=== PATIENT | male | born 1965 | race Caucasian/White ===

== ENCOUNTER 2016-12-07 04:14 | Inpatient (IN) | payer OTHER ==
[~2016-12-07] VITALS: Ht 177.8 cm; Wt 49.4 kg
--- NOTE | ~2016-12-07 | EKG ---
[address] [address] ELECTROCARDIOGRAM REPORT Name: JUICE BURGOS Room #: 419-P ADM IN M.R.#: [id number] Admission: 12/08/16 Attend Phys: Neetu Amaya MD Discharge: Date of : 67 Report #: [id number] THIS REPORT FOR: //name// [facility] Test Date: 2016-12-10 Test Time: 13:23:50 Pat Name: JIUCE BURGOS Department: Room: 419 P Gender: M Fashion Coordinator: rachid : 1965 Requested By: Conrado Ramirez Order Number: [id number] MD: Liam Mccoy Measurements Intervals [place] Rate: 82 P: 37 MN: 170 QRS: -49 QRSD: 95 T: 36 QT: 373 QTc: 436 Interpretive Statements Sinus rhythm Baseline wander in multiple leads leftward axis no previous ECGs available for comparison Electronically Signed On 12-11-2016 8:00:00 RN NEUROLOGY by Liam Mccoy [email or web address] <ELECTRONICALLY SIGNED> By: Liam Mccoy MD, [facility] 12/11/16 0800 1323 1323 Liam Mccoy MD, FAC /EPI
--- NOTE | ~2016-12-07 | H ---
[facility] [place] [address] HISTORY AND PHYSICAL Name: JUICE BURGOS Room #: 419-P [facility] Yan Benson#: [id number] Admission: 12/07/16 Attend Phys: Neetu Amaya MD Discharge: Date of : 67 Report #: [id number] THIS REPORT FOR: //name// CC: Conrado Rasmussen DATE OF SERVICE: 12/07/2016 TYPE OF DICTATION: Admission H and P after [id number]-pt-wnnz encounter. CHIEF COMPLAINT: Status epilepticus. HISTORY OF PRESENT ILLNESS: The patient is 51 years old male with past medical history of seizures since , who presented to the ED with seizure activity, continuous, starting this morning. Seizures consistent with staring, ____ twitching, and restlessness. The patient is remaining agitated after the seizure. The patient was vomiting at home and he could not take his medicines I think and this is causing his seizures. He was started on IV antiseizures and he is now better. The patient was seen by neurology this morning and appreciated input. REVIEW OF SYSTEMS: Unobtainable. PAST MEDICAL HISTORY: 1. Seizure disorder. 2. Colonization. 3. Bipolar disorder. 4. Moderate mental retardation. 5. Osteoarthritis. 6. ____. 7. Dysphagia. 8. PE. 9. IV filter placement. 10. Hypothyroidism. MEDICATIONS: See admission reconciliation sheet. ALLERGIES: No known drug allergies. FAMILY HISTORY: Noncontributory. SOCIAL HISTORY: Never smoked, drink or took any recreational drugs. PHYSICAL EXAMINATION: GENERAL: The patient is confused, mentally retarded, decreased attention. EYES: Normal pupils. No icterus. [facility] [address] [place] [address] HISTORY AND PHYSICAL Name: JUICE BURGOS [id number] Admission: 12/07/16 Attend Phys: Neetu Amaya MD Discharge: Date of : 67 Report #: [id number] HEENT: Moist mucous membranes. NECK: Supple. No JVD, no bruit, no thyroid. CHEST: Good air entry on both sides. Normal respiratory effort. CARDIOVASCULAR: Regular rate and rhythm. No murmur, rub or gallop. ABDOMEN: Lax, nontender, positive bowel sounds, no organomegaly appreciated. EXTREMITIES: No cyanosis, clubbing, or edema. NEUROLOGIC: Cranial nerves 2-12 are intact. No focal neurological signs. PSYCHIATRIC: Restless. SKIN: No rash or ulcer. LABORATORY DATA: White count 7.9, hemoglobin 14.6, hematocrit 42.5, and platelets 282. Normal differential. BMP is normal. LFTs within normal except alkaline phosphatase is 160. EKG, no acute changes. ASSESSMENT AND PLAN: 1. Status epilepticus. The patient is going to be on IV Depakote until we can resume his home medicines. Neurology is also seeing the patient, they are going to follow with him. 2. Nausea and vomiting, to give him antinausea medicines as needed. 3. The patient is full code. 4. The patient has gastrointestinal and deep venous thrombosis prophylaxis. <ELECTRONICALLY SIGNED> By: Neetu Amaya MD 12/08/16 0952 1105 1137 Neetu Amaya MD /nt
--- NOTE | ~2016-12-07 | EKG ---
[address] [place] [place] [address] ELECTROCARDIOGRAM REPORT Name: REJI BURGOSY Julissa Room #: 426-P [facility]..#: [id number] Admission: 12/07/16 Attend Phys: Vannesa Rasmussen MD Discharge: Date of : 67 Report #: [id number] THIS REPORT FOR: //name// [facility] ED Test Date: 2016-12-07 Test Time: 05:23:46 Pat Name: JUICE BURGOS Department: Room: [facility] Gender: M Marketing Secretary: pete : 1965 Requested By: Bulmaro Lewis Order Number: [id number] MD: Chan Thomas Measurements Intervals [place] Rate: 104 P: 30 PA: 179 QRS: -81 QRSD: 95 T: 52 QT: 335 QTc: 441 Interpretive Statements Sinus tachycardia Left anterior fascicular block Nonspecific ST segment abnormalities Compared to ECG 09/01/2016 19:51:28 No significant change Electronically Signed On 12-07-2016 11:01:17 CONTINUUM OF CARE MANAGER by Chan Thomas [email or web address] <ELECTRONICALLY SIGNED> By: Chan Thomas MD 12/07/16 1101 D: 01522 2 Chan Thomas MD /ABDIFATAH
--- NOTE | ~2016-12-07 | HC ---
[facility] [place] [address] CONSULTATION Name: JUICE BURGOS Room #: 419-P [facility] IN ..#: [id number] Admission: 12/08/16 Attend Phys: Neetu Amaya MD Discharge: 12/11/16 Date of : 67 Report #: [id number] THIS REPORT FOR: //name// CC: Neetu Becker DATE OF SERVICE: 12/09/2016 HISTORY OF PRESENT ILLNESS: We were asked to see this gentleman with respect to his chronic psychiatric illness. Past diagnoses include bipolar affective disorder, schizoaffective disorder and developmental delay. Presented here after having a seizure. He has been uncooperative and combative initially, but now is sitting in the chair quite peacefully. PAST PSYCHIATRIC HISTORY: He has a longstanding history of agitation, mood disorder and developmental delay. PAST MEDICAL HISTORY: Seizure disorder, he is on multiple anticonvulsants. He has had a vagal nerve stimulator, hypothyroid, osteoarthritis. SOCIAL HISTORY: He lives in a senior care, no active substance abuse issues. His sister is his guardian. FAMILY HISTORY: Unable to obtain from the patient. CURRENT MEDICATIONS: Include Lamictal 100 daily, phenytoin 100 three times daily, Vimpat 200 twice daily. MENTAL STATUS EXAM: male, childlike demeanor, casually dressed, blunting of affect, distractable, no suicidal ideation, no homicidal ideation, no hallucinations, no delusions. Insight, judgment limited. DIAGNOSES: AXIS I: Schizoaffective disorder. AXIS II: Developmental delay. AXIS III: See past medical history. AXIS IV: Moderately severe. AXIS V: 25. RECOMMENDATIONS: 1. All decisions through the patient's sister who is his legal guardian. 2. I did talk to the patient's sister who explained that the exacerbations of behavior are generally due to seizures and the seizures have typically been related to infections or other metabolic infectious injuries or insults. His sister did not think that any of the psychotropic medications had ever affected seizure threshold or been a contraindication based on his seizure disorder. [facility] [address] [place] [address] CONSULTATION Name: JUICE BURGOS Room #: 419-P [facility] IN M.R.#: [id number] Admission: 12/08/16 Attend Phys: Neetu Amaya MD Discharge: 12/11/16 Date of : 67 Report #: [id number] Sister is going to try to get us more information upon and with respect to recent medication changes from a psychiatric psychotropic standpoint. I did try to call but was unable to reach them. He typically would not meet criteria for an inpatient psychiatric unit even if he was agitated based upon severe enough developmental delay that would preclude functioning in the milieu. <ELECTRONICALLY SIGNED> By: Too Garcia MD 12/16/16 1412 1514 1546 Too Garcia MD /jacqui
[~2016-12-07 04:14] MED LIST: ATIVAN0.5 MG PO; ATIVAN1 M1; ATIVAN1 M1 PO; ATIVAN1 MG PO; AUGMENTIN PO; BACTRIM DS TAB1 EACH PO; CARBAMAZEPINE100 MG PO; CARBAMAZEPINE200 M3 PO; CHLORPROMAZINE100 MG PO; CIPROFLOXACIN500 M1 PO; CLARITIN10 MG PO; DIAZEPAM 5 MG5 M1 PO; DILANTIN100 MG PO; DOCUSATE SODIU100 MG PO; HALOPERIDOL 5 MG5 MG PO; KEFLEX500 MG PO; LAMICTAL XR100 MG PO; LAMICTAL100 MG PO; LAMOTRIGINE100 MG PO; LEVOTHYROXINE0.05 MG PO; LORAZEPAM 22 MG/1 ML PO; LORAZEPAM I2 MG/1 ML; MEDROXYPROGESTERONE IM; MIRALAX17 GM PO; NORCO 5-325 TA1 EACH PO; ONDANSETRON HCL4 M2 PO; PAROXETINE HCL30 MG PO; REQUIP 1 MG TABL1 M1 PO; SEROQUEL 50 MG50 MG PO; SIMVASTATIN40 MG PO; TRAZODONE 150150 M1 PO; TRAZODONE HCL100 MG PO; TRIAMCINOLONE A60 M1; Trazodone PO; VALIUM5 MG PO; VIMPAT100 MG PO; ZOCOR20 MG PO; ZOFRAN ODT4 MG PO
[2016-12-07 04:15] VITALS: BP 126/81
[2016-12-07 05:10] LABS: HEMATOCRIT 42.5 % (42.0-52.0); HEMOGLOBIN 14.6 gm/dL (14.0-18.0); MCH 29.5 pg (26.0-34.0); MCHC 34.3 % (28.0-37.0); MCV 85.9 fL (80.0-100.0); PLATELET COUNT 282 thou/uL (150-400); RBC 4.94 mil/uL (4.50-6.00); RDW 14.2 % (10.5-14.5); WBC 7.9 thou/uL (4.0-11.0)
[2016-12-07 05:18] LABS: MANUAL DIFF YES
[2016-12-07 05:20] LABS: CALCIUM 9.3 mg/dL (8.5-10.1); CREATININE 0.8 mg/dL (0.6-1.3); POTASSIUM 3.8 mmol/L (3.5-5.1)
[2016-12-07 05:37] LABS: TOTAL BILIRUBIN 0.2 mg/dL (<0.1-1.0)
[2016-12-07 06:18] LABS: TOTAL CELL COUNT 100
[2016-12-07 06:32] VITALS: BP 115/87
[2016-12-07 07:30] VITALS: BP 98/66
[2016-12-07 15:51] VITALS: BP 120/76
[2016-12-07 20:00] VITALS: BP 126/87
[2016-12-08 04:00] VITALS: BP 111/81
[2016-12-08 05:45] LABS: HEMATOCRIT 40.6 % (42.0-52.0); HEMOGLOBIN 13.8 gm/dL (14.0-18.0); MCH 29.2 pg (26.0-34.0); PLATELET COUNT 255 thou/uL (150-400); RBC 4.72 mil/uL (4.50-6.00); RDW 14.5 % (10.5-14.5); WBC 6.7 thou/uL (4.0-11.0)
[2016-12-08 05:46] LABS: MANUAL DIFF YES
[2016-12-08 05:50] LABS: CREATININE 0.6 mg/dL (0.6-1.3); POTASSIUM 3.5 mmol/L (3.5-5.1)
[2016-12-08 07:42] VITALS: BP 123/85
[2016-12-08 07:46] LABS: ABSOLUTE NEUTROPHILS 4.8 thou/uL (1.4-8.2); TOTAL CELL COUNT 100
[2016-12-08 07:47] LABS: ANISOCYTOSIS SLIGHT
[2016-12-08 15:34] VITALS: BP 131/86
[2016-12-08 23:04] VITALS: BP 135/67
[2016-12-09 05:28] VITALS: BP 109/57
[2016-12-09 06:30] LABS: HEMATOCRIT 42.2 % (42.0-52.0); HEMOGLOBIN 14.6 gm/dL (14.0-18.0); MCH 29.5 pg (26.0-34.0); MCHC 34.6 % (28.0-37.0); MCV 85.4 fL (80.0-100.0); PLATELET COUNT 235 thou/uL (150-400); RBC 4.94 mil/uL (4.50-6.00); RDW 14.5 % (10.5-14.5); WBC 5.8 thou/uL (4.0-11.0)
[2016-12-09 06:31] LABS: MANUAL DIFF YES
[2016-12-09 07:11] LABS: CALCIUM 8.8 mg/dL (8.5-10.1); CREATININE 0.6 mg/dL (0.6-1.3); POTASSIUM 3.7 mmol/L (3.5-5.1)
[2016-12-09 07:50] VITALS: BP 108/71
[2016-12-09 08:41] LABS: ABSOLUTE NEUTROPHILS 3.5 thou/uL (1.4-8.2); PLATELET ESTIMATE NORMAL; TOTAL CELL COUNT 100
[2016-12-09 15:23] VITALS: BP 95/66
[2016-12-09 20:00] VITALS: BP 142/83
[2016-12-10 04:30] VITALS: BP 110/85
[2016-12-10 07:35] VITALS: BP 118/76
[2016-12-10 13:29] VITALS: BP 107/72
[2016-12-10 13:59] LABS: HEMATOCRIT 42.3 % (42.0-52.0); HEMOGLOBIN 14.5 gm/dL (14.0-18.0); MCH 29.2 pg (26.0-34.0); MCHC 34.2 % (28.0-37.0); MCV 85.5 fL (80.0-100.0); PLATELET COUNT 219 thou/uL (150-400); RBC 4.95 mil/uL (4.50-6.00); RDW 14.3 % (10.5-14.5); WBC 4.2 thou/uL (4.0-11.0)
[2016-12-10 14:01] LABS: MANUAL DIFF YES
[2016-12-10 14:10] LABS: CALCIUM 8.3 mg/dL (8.5-10.1); CREATININE 0.6 mg/dL (0.6-1.3); POTASSIUM 3.3 mmol/L (3.5-5.1)
[2016-12-10 14:12] LABS: DILANTIN 4.1 ug/mL (10.0-20.0)
[2016-12-10 14:17] LABS: TOTAL CELL COUNT 100
[2016-12-10 17:05] VITALS: BP 117/72
[2016-12-10 20:00] VITALS: BP 113/70
[2016-12-11 04:00] VITALS: BP 111/70
[2016-12-11 07:32] VITALS: BP 124/66
[2016-12-11 08:04] VITALS: BP 119/74
[2016-12-11 15:21] VITALS: BP 119/74
[2016-12-11 15:23] VITALS: BP 119/86
[2016-12-11] MEDS ORDERED: PHENYTOIN50 MG PO ×2 (15:49→15:50)
== END 2016-12-11 18:20 | disposition other institution (70) | DRG 871 ==
LOC: ER 04:14 → 4E 05:31 → EROBS 05:31 → 4E 06:30
PROVIDERS: Emergency Medicine; Hospitalist
DX: A41.9 Sepsis, unspecified organism (principal); G93.40 Encephalopathy, unspecified; G40.801 Other epilepsy, not intractable, with status epilepticus; N39.0 Urinary tract infection, site not specified; F25.9 Schizoaffective disorder, unspecified; F31.9 Bipolar disorder, unspecified; E03.9 Hypothyroidism, unspecified; M19.90 Unspecified osteoarthritis, unspecified site; Z79.899 Other long term (current) drug therapy; Z86.711 Personal history of pulmonary embolism
CPT/HCPCS: 10183

== ENCOUNTER → 2017-03-05 | Outpatient (CLI) | payer OTHER ==
[~2017-03-05] MED LIST changes: +PHENYTOIN50 MG PO
--- NOTE | ~2017-03-05 | EKG ---
[address] [place] [address] ELECTROCARDIOGRAM REPORT Name: JUICE BURGOS Room #: [facility]#: [id number] Admission: 03/05/17 Attend Phys: Conrado Becker MD Discharge: Date of : 67 Report #: [id number] THIS REPORT FOR: //name// [facility] Test Date: 2017-03-05 Test Time: 11:29:01 Pat Name: JUICE BURGOS Department: Room: Gender: Pedicurist: rachid : 1965 Requested By: Conrado Becker Order Number: [id number] MD: Liam Mccoy Measurements Intervals [place] Rate: 81 P: 16 [place]: 185 QRS: -83 QRSD: 102 T: 67 QT: 390 QTc: 453 Interpretive Statements Sinus rhythm Left anterior fascicular block Baseline wander in lead(s) I,III,aVR,aVL,aVF,V6 Compared to ECG 12/10/2016 13:23:50 No significant change was found Electronically Signed On 03-06-2017 8:35:59 CDT by Liam Mccoy [email or web address] <ELECTRONICALLY SIGNED> By: Liam Mccoy MD, [facility] 03/06/17 0835 1129 1129 Liam Mccoy MD, [facility] /EPI
[2017-03-05 12:09] LABS: HEMATOCRIT 43.7 % (42.0-52.0); HEMOGLOBIN 14.9 gm/dL (14.0-18.0); MCH 30.2 pg (26.0-34.0); MCHC 34.2 g/dL (28.0-37.0); MCV 88.2 fL (80.0-100.0); RBC 4.95 mil/uL (4.50-6.00); RDW 14.5 % (10.5-14.5); WBC 3.9 thou/uL (4.0-11.0)
[2017-03-05 12:18] LABS: CALCIUM 8.8 mg/dL (8.5-10.1); CREATININE 0.7 mg/dL (0.7-1.3); POTASSIUM 3.9 mmol/L (3.5-5.1)
[2017-03-05 12:23] LABS: ALBUMIN 4.4 g/dL (3.4-5.0); TOTAL BILIRUBIN 0.3 mg/dL (<0.1-1.0)
[2017-03-05 15:43] LABS: URINE BILIRUBIN NEGATIVE (Negative); URINE BLOOD NEGATIVE (Negative); URINE COLOR YELLOW; URINE GLUCOSE-RANDOM* NEGATIVE (Negative); URINE KETONES NEGATIVE (Negative); URINE NITRITE NEGATIVE (Negative); URINE PROTEIN (DIPSTICK) NEGATIVE (Negative); URINE UROBILINOGEN 0.2 E.U./dl (0.2-1.0)
== END ==
LOC: CV 06:46
DX: Z01.818 Encounter for other preprocedural examination (principal); R91.8 Other nonspecific abnormal finding of lung field

== ENCOUNTER 2017-04-12 22:10 | Inpatient (IN) | payer OTHER ==
[~2017-04-12] VITALS: Ht 185.4 cm; Wt 85.3 kg
[2017-04-12 22:11] VITALS: BP 129/62
[2017-04-12 23:08] LABS: ABSOLUTE NEUTROPHILS 2.3 thou/uL (1.4-8.2); BASOPHILS 0.7 % (0.0-2.0); EOSINOPHILS 2.5 % (0.0-3.0); HEMATOCRIT 40.4 % (42.0-52.0); HEMOGLOBIN 13.8 gm/dL (14.0-18.0); LYMPHOCYTES 32.1 % (24.0-44.0); MCH 30.5 pg (26.0-34.0); MCHC 34.2 g/dL (28.0-37.0); MCV 89.2 fL (80.0-100.0); MONOCYTES 9.9 % (1.0-8.0); PLATELET COUNT 209 thou/uL (150-400); POLYS 54.8 % (36.0-66.0); RBC 4.53 mil/uL (4.50-6.00); RDW 13.7 % (10.5-14.5); WBC 4.2 thou/uL (4.0-11.0)
[2017-04-12 23:09] LABS: URINE BILIRUBIN NEGATIVE (Negative); URINE BLOOD NEGATIVE (Negative); URINE COLOR YELLOW; URINE GLUCOSE-RANDOM* NEGATIVE (Negative); URINE KETONES NEGATIVE (Negative); URINE LEUKOCYTES-REFLEX NEGATIVE (Negative); URINE PROTEIN (DIPSTICK) NEGATIVE (Negative); URINE SPECIFIC GRAVITY 1.015 (1.003-1.035); URINE UROBILINOGEN 0.2 E.U./dl (0.2-1.0)
[2017-04-12 23:10] LABS: MANUAL DIFF NO
[2017-04-12 23:16] LABS: CALCIUM 8.5 mg/dL (8.5-10.1); CREATININE 0.7 mg/dL (0.7-1.3); POTASSIUM 3.4 mmol/L (3.5-5.1)
[2017-04-13 00:52] VITALS: BP 128/74; BP 129/62
[2017-04-13 08:05] VITALS: BP 137/62
[2017-04-13 08:22] LABS: CALCIUM 9.1 mg/dL (8.5-10.1); CREATININE 0.6 mg/dL (0.7-1.3); POTASSIUM 4.1 mmol/L (3.5-5.1)
[2017-04-13 12:55] VITALS: BP 120/74
[2017-04-13 15:57] VITALS: BP 137/62
[2017-04-13 16:20] VITALS: BP 133/81
[2017-04-13 19:15] VITALS: BP 134/88
[2017-04-14 03:45] VITALS: BP 130/97
[2017-04-14 06:03] LABS: CALCIUM 9.1 mg/dL (8.5-10.1); CREATININE 0.7 mg/dL (0.7-1.3); POTASSIUM 4.4 mmol/L (3.5-5.1)
== END 2017-04-14 09:28 | disposition home health service (06) | DRG 101 ==
LOC: ER 22:10 → 4W 23:41 → EROBS 23:41 → 4W 04-13 00:55
PROVIDERS: Emergency Medicine; Hospitalist; Nurse Practitioner Acute Care
DX: G40.919 Epilepsy, unspecified, intractable, without status epilepticus (principal); F71 Moderate intellectual disabilities; M19.90 Unspecified osteoarthritis, unspecified site; E87.6 Hypokalemia; F80.82 Social pragmatic communication disorder; F31.9 Bipolar disorder, unspecified; E03.9 Hypothyroidism, unspecified; Z79.899 Other long term (current) drug therapy; Z87.440 Personal history of urinary (tract) infections; Z86.711 Personal history of pulmonary embolism
CPT/HCPCS: 10047

== ENCOUNTER 2017-06-08 19:58 | Emergency (ER) | payer OTHER ==
[~2017-06-08] VITALS: Ht 177.8 cm; Wt 86.2 kg
--- NOTE | ~2017-06-08 | EKG ---
[address] [place] [address] ELECTROCARDIOGRAM REPORT Name: LORETTA,JUICEJustin PECK Room [facility] [id number] Admission: 06/08/17 Attend Phys: Discharge: 06/08/17 Date of : 67 Report #: [id number] THIS REPORT FOR: //name// [facility] ED Test Date: 2017-06-08 Test Time: 20:23:13 Pat Name: JUICE BURGOS Department: Room: Gender: M Cash Controller: LOUISA : 1965 Requested By: Magi Shipman Order Number: [id number] MD: Liam Mccoy Measurements Intervals [place] Rate: 98 P: -2 MO: 169 QRS: 220 QRSD: 92 T: 42 QT: 348 QTc: 445 Interpretive Statements Sinus rhythm Markedly posterior QRS axis ST elevation, consider inferior injury Compared to ECG 03/05/2017 11:29:01 Posterior QRS axis now present ST (T wave) deviation now present Myocardial infarct finding now present Left anterior fascicular block no longer present Electronically Signed On 06-09-2017 7:49:05 CDT by Liam Mccoy [email or web address] <ELECTRONICALLY SIGNED> By: Liam Mccoy MD, [facility] 06/09/1749 22 22 Liam Mccoy MD, [facility] /EPI
[~2017-06-08 19:58] MED LIST changes: +DOXYCYCLINE 10100 MG PO; +HYDROCODONE-APA1 TA1 PO; +ONFI10 MG PO
[2017-06-08] MEDS ORDERED: PAXIL10 MG PO ×2 (20:41→20:42)
[2017-06-08 21:30] LABS: ABSOLUTE NEUTROPHILS 2.3 thou/uL (1.4-8.2); BASOPHILS 0.8 % (0.0-2.0); EOSINOPHILS 1.9 % (0.0-3.0); HEMATOCRIT 42.1 % (42.0-52.0); HEMOGLOBIN 14.2 gm/dL (14.0-18.0); LYMPHOCYTES 40.5 % (24.0-44.0); MCH 29.3 pg (26.0-34.0); MCHC 33.8 g/dL (28.0-37.0); MCV 86.7 fL (80.0-100.0); MONOCYTES 10.9 % (1.0-8.0); PLATELET COUNT 244 thou/uL (150-400); POLYS 45.9 % (36.0-66.0); RBC 4.86 mil/uL (4.50-6.00); RDW 14.7 % (10.5-14.5)
[2017-06-08 21:32] LABS: MANUAL DIFF NO
[2017-06-08 21:44] LABS: CALCIUM 9.2 mg/dL (8.5-10.1); CREATININE 0.8 mg/dL (0.7-1.3)
[2017-06-08 21:49] LABS: TOTAL BILIRUBIN 0.2 mg/dL (<0.1-1.0); TOTAL PROTEIN 7.9 g/dL (6.4-8.2)
[2017-06-08] MEDS ORDERED: KEFLEX500 MG PO (23:11)
[2017-06-08] MEDS ORDERED: REGLAN 10 MG TA10 MG PO (23:11)
[2017-06-08] MEDS ORDERED: PEPCID20 MG PO (23:11)
== END 2017-06-08 23:16 | disposition home or self-care (01) ==
LOC: ER 19:58
PROVIDERS: Physician Assistant
DX: R11.2 Nausea with vomiting, unspecified (principal); E86.0 Dehydration; R10.84 Generalized abdominal pain; F31.9 Bipolar disorder, unspecified; M19.90 Unspecified osteoarthritis, unspecified site; E03.9 Hypothyroidism, unspecified; F71 Moderate intellectual disabilities

== ENCOUNTER 2017-09-17 12:10 | Emergency (ER) | payer OTHER ==
[~2017-09-17] VITALS: Ht 177.8 cm; Wt 86.2 kg
[~2017-09-17 12:10] MED LIST changes: +PAXIL10 MG PO; +PEPCID20 MG PO; +REGLAN 10 MG TA10 MG PO
== END 2017-09-17 13:50 | disposition home or self-care (01) ==
LOC: ER 12:10
DX: S61.412A Laceration without foreign body of left hand, initial encounter (principal); F31.9 Bipolar disorder, unspecified; M19.90 Unspecified osteoarthritis, unspecified site; E03.9 Hypothyroidism, unspecified; Z87.440 Personal history of urinary (tract) infections; Z86.711 Personal history of pulmonary embolism; W01.0XXA Fall on same level from slipping, tripping and stumbling without subsequent striking against object, initial encounter; Y93.89 Activity, other specified; Y92.89 Other specified places as the place of occurrence of the external cause; Y99.8 Other external cause status

== ENCOUNTER 2018-04-06 15:40 | Emergency (ER) | payer OTHER ==
[~2018-04-06] VITALS: Ht 188 cm; Wt 97.5 kg
[~2018-04-06 15:40] MED LIST changes: +PROTONIX40 M2 PO
== END 2018-04-06 17:33 ==
LOC: ER 15:40
DX: S01.112A Laceration without foreign body of left eyelid and periocular area, initial encounter (principal); F31.9 Bipolar disorder, unspecified; M19.90 Unspecified osteoarthritis, unspecified site; E03.9 Hypothyroidism, unspecified; Z87.440 Personal history of urinary (tract) infections; Z86.711 Personal history of pulmonary embolism; W01.0XXA Fall on same level from slipping, tripping and stumbling without subsequent striking against object, initial encounter; Y93.89 Activity, other specified; Y92.89 Other specified places as the place of occurrence of the external cause; Y99.8 Other external cause status

== ENCOUNTER 2018-04-21 16:09 | Emergency (ER) | payer OTHER ==
[~2018-04-21] VITALS: Ht 175.3 cm; Wt 83.9 kg
[2018-04-21 18:10] LABS: ABSOLUTE NEUTROPHILS 5.1 thou/uL (1.4-8.2); BASOPHILS 0.3 % (0.0-2.0); EOSINOPHILS 1.6 % (0.0-3.0); HEMATOCRIT 42.3 % (42.0-52.0); HEMOGLOBIN 14.3 gm/dL (14.0-18.0); LYMPHOCYTES 22.9 % (24.0-44.0); MCH 29.6 pg (26.0-34.0); MCHC 33.8 g/dL (28.0-37.0); MCV 87.4 fL (80.0-100.0); MONOCYTES 9.8 % (1.0-8.0); PLATELET COUNT 226 thou/uL (150-400); POLYS 65.4 % (36.0-66.0); RBC 4.84 mil/uL (4.50-6.00); RDW 14.2 % (10.5-14.5); WBC 7.8 thou/uL (4.0-11.0)
[2018-04-21 18:26] LABS: POTASSIUM 3.6 mmol/L (3.5-5.1)
[2018-04-21 18:30] LABS: ALBUMIN 4.3 g/dL (3.4-5.0); TOTAL BILIRUBIN 0.3 mg/dL (<0.1-1.0); TOTAL PROTEIN 8.5 g/dL (6.4-8.2)
[2018-04-21] MEDS ORDERED: ZOFRAN ODT4 MG DISSOLVE (19:43)
== END 2018-04-21 20:07 | disposition home or self-care (01) ==
LOC: ER 16:09
PROVIDERS: Physician Assistant
DX: R19.7 Diarrhea, unspecified (principal); R10.13 Epigastric pain; M19.90 Unspecified osteoarthritis, unspecified site; F31.9 Bipolar disorder, unspecified; E03.9 Hypothyroidism, unspecified

== ENCOUNTER 2018-05-17 12:39 | Emergency (ER) | payer OTHER ==
[~2018-05-17] VITALS: Ht 182.9 cm; Wt 97.5 kg
[~2018-05-17 12:39] MED LIST changes: +ZOFRAN ODT4 MG DISSOLVE
[2018-05-17 13:43] LABS: ANION GAP 8 mmol/L (7-16); BUN 20 mg/dL (7-18); CALCIUM 9.2 mg/dL (8.5-10.1); CHLORIDE 101 mmol/L (98-107); CO2 29 mmol/L (21-32); GLUCOSE 135 mg/dL (74-106); POTASSIUM 4.5 mmol/L (3.5-5.1); SODIUM 138 mmol/L (136-145)
[2018-05-17 13:45] LABS: ABSOLUTE NEUTROPHILS 6.8 thou/uL (1.4-8.2); BASOPHILS 0.3 % (0.0-2.0); EOSINOPHILS 1.1 % (0.0-3.0); HEMOGLOBIN 14.5 gm/dL (14.0-18.0); LYMPHOCYTES 17.5 % (24.0-44.0); MCH 29.4 pg (26.0-34.0); MCV 89.2 fL (80.0-100.0); MONOCYTES 8.1 % (1.0-8.0); PLATELET COUNT 128 thou/uL (150-400); RBC 4.94 mil/uL (4.50-6.00); RDW 14.6 % (10.5-14.5); WBC 9.4 thou/uL (4.0-11.0)
[2018-05-17 13:49] LABS: ALBUMIN 4.1 g/dL (3.4-5.0); CHOLESTEROL 169 mg/dL (<200); HDL CHOLESTEROL 33 mg/dL (>40); LDL CHOLESTEROL 98 mg/dL (<100); SGOT 29 U/L (15-37); SGPT 18 U/L (30-65); TC:HDL 5.1 Ratio (Not establshd); TOTAL BILIRUBIN 0.4 mg/dL (<0.1-1.0); TOTAL PROTEIN 8.7 g/dL (6.4-8.2); TRIGLYCERIDE 190 mg/dL (<150); VLDL 38 mg/dL (<40)
== END 2018-05-17 15:12 | disposition home or self-care (01) ==
LOC: ER 12:39
PROVIDERS: Nurse Practitioner Family
DX: R56.9 Unspecified convulsions (principal); M19.90 Unspecified osteoarthritis, unspecified site; F31.9 Bipolar disorder, unspecified; E03.9 Hypothyroidism, unspecified

== ENCOUNTER 2018-09-08 18:36 | Emergency (ER) | payer OTHER ==
[~2018-09-08] VITALS: Ht 172.7 cm; Wt 97.5 kg
[~2018-09-08 18:36] MED LIST changes: +CHLORPROMAZINE200 MG PO; +NORCO 10-325 T1 EACH PO; +TRIAMCINOLONE A80 G2 TOP
[2018-09-08 19:57] LABS: HEMATOCRIT 38.5 % (42.0-52.0); HEMOGLOBIN 13.6 gm/dL (14.0-18.0); MCH 30.7 pg (26.0-34.0); MCHC 35.3 g/dL (28.0-37.0); MCV 87.1 fL (80.0-100.0); RBC 4.42 mil/uL (4.50-6.00); RDW 14.2 % (10.5-14.5); WBC 6.4 thou/uL (4.0-11.0)
[2018-09-08 20:00] LABS: CALCIUM 8.9 mg/dL (8.5-10.1); CREATININE 0.9 mg/dL (0.7-1.3); POTASSIUM 4.4 mmol/L (3.5-5.1)
[2018-09-08] MEDS ORDERED: ZOFRAN ODT4 MG PO (21:41)
== END 2018-09-08 21:48 | disposition home or self-care (01) ==
LOC: ER 18:36
PROVIDERS: Emergency Medicine
DX: R56.9 Unspecified convulsions (principal); R11.10 Vomiting, unspecified; F31.9 Bipolar disorder, unspecified; M19.90 Unspecified osteoarthritis, unspecified site; E03.9 Hypothyroidism, unspecified

== ENCOUNTER 2018-11-01 12:58 | Emergency (ER) | payer OTHER ==
[~2018-11-01] VITALS: Ht 172.7 cm; Wt 98.9 kg
[2018-11-01 15:00] VITALS: BP 114/80
== END 2018-11-01 15:11 | disposition home or self-care (01) ==
LOC: ER 12:58
DX: S01.81XA Laceration without foreign body of other part of head, initial encounter (principal); W19.XXXA Unspecified fall, initial encounter; Y93.89 Activity, other specified; Y92.89 Other specified places as the place of occurrence of the external cause; Y99.8 Other external cause status; F31.89 Other bipolar disorder; E03.9 Hypothyroidism, unspecified; M19.90 Unspecified osteoarthritis, unspecified site

== ENCOUNTER 2019-03-17 20:12 | Emergency (ER) | payer OTHER ==
[~2019-03-17] VITALS: Ht 175.3 cm; Wt 104.3 kg
[2019-03-17 20:22] VITALS: BP 149/129
[2019-03-17] MEDS ORDERED: ATIVAN1 MG PO (20:31)
[2019-03-17] MEDS ORDERED: ATIVAN0.5 MG PO (20:31)
[2019-03-17] MEDS ORDERED: LAMICTAL200 MG PO (20:34)
[2019-03-17] MEDS ORDERED: MILK OF MA2400 MG/11 PO (20:44)
[2019-03-17] MEDS ORDERED: HYDROCODONE-AP1 EAC6 PO (22:00)
== END 2019-03-17 22:09 | disposition home or self-care (01) ==
LOC: ER 20:12
DX: S82.491A Other fracture of shaft of right fibula, initial encounter for closed fracture (principal); S20.212A Contusion of left front wall of thorax, initial encounter; S00.212A Abrasion of left eyelid and periocular area, initial encounter; F31.9 Bipolar disorder, unspecified; M19.90 Unspecified osteoarthritis, unspecified site; E03.9 Hypothyroidism, unspecified; Z87.440 Personal history of urinary (tract) infections; Z86.711 Personal history of pulmonary embolism; W18.39XA Other fall on same level, initial encounter; Y93.E1 Activity, personal bathing and showering; Y92.89 Other specified places as the place of occurrence of the external cause; Y99.8 Other external cause status

== ENCOUNTER 2019-03-23 11:36 | Emergency (ER) | payer OTHER ==
[~2019-03-23] VITALS: Ht 180.3 cm; Wt 81.7 kg
[~2019-03-23 11:36] MED LIST changes: +HYDROCODONE-AP1 EAC6 PO; +LAMICTAL200 MG PO; +MILK OF MA2400 MG/11 PO
[2019-03-23 13:42] VITALS: BP 157/98
== END 2019-03-23 13:35 ==
LOC: ER 11:36
DX: S01.112A Laceration without foreign body of left eyelid and periocular area, initial encounter (principal); F31.9 Bipolar disorder, unspecified; M19.90 Unspecified osteoarthritis, unspecified site; E03.9 Hypothyroidism, unspecified; W18.2XXA Fall in (into) shower or empty bathtub, initial encounter; Y93.89 Activity, other specified; Y92.89 Other specified places as the place of occurrence of the external cause; Y99.8 Other external cause status

== ENCOUNTER 2019-05-03 08:15 | Emergency (ER) | payer OTHER ==
[~2019-05-03] VITALS: Ht 182.9 cm; Wt 90.7 kg
[2019-05-03] MEDS ORDERED: ATIVAN0.5 MG PO (08:53)
[2019-05-03] MEDS ORDERED: SEROQUEL XR150 MG PO (08:55)
[2019-05-03] MEDS ORDERED: REQUIP 1 MG TABL1 M1 PO (08:56)
[2019-05-03] MEDS ORDERED: VENTOLIN HFA 1818 GM INH (10:18)
[2019-05-03] MEDS ORDERED: MUCINEX DM ER1 EACH PO (10:18)
[2019-05-03 11:00] VITALS: BP 105/59
== END 2019-05-03 11:01 | disposition home or self-care (01) ==
LOC: ER 08:15
DX: J06.9 Acute upper respiratory infection, unspecified (principal); J20.9 Acute bronchitis, unspecified; M19.90 Unspecified osteoarthritis, unspecified site; E03.9 Hypothyroidism, unspecified; Z86.711 Personal history of pulmonary embolism

== ENCOUNTER 2019-06-28 20:16 | Emergency (ER) | payer OTHER ==
[~2019-06-28] VITALS: Ht 175.3 cm; Wt 108.9 kg
[~2019-06-28 20:16] MED LIST changes: +MUCINEX DM ER1 EACH PO; +SEROQUEL XR150 MG PO; +VENTOLIN HFA 1818 GM INH
[2019-06-28 23:11] VITALS: BP 119/75
== END 2019-06-28 23:12 | disposition home or self-care (01) ==
LOC: ER 20:16
DX: S01.81XA Laceration without foreign body of other part of head, initial encounter (principal); S80.212A Abrasion, left knee, initial encounter; F31.9 Bipolar disorder, unspecified; E03.9 Hypothyroidism, unspecified; M19.90 Unspecified osteoarthritis, unspecified site; Z86.711 Personal history of pulmonary embolism; Z87.440 Personal history of urinary (tract) infections; Z86.59 Personal history of other mental and behavioral disorders; W01.198A Fall on same level from slipping, tripping and stumbling with subsequent striking against other object, initial encounter; Y93.89 Activity, other specified; Y92.480 Sidewalk as the place of occurrence of the external cause; Y99.8 Other external cause status

== ENCOUNTER 2019-09-05 18:22 | Emergency (ER) | payer OTHER ==
[~2019-09-05] VITALS: Ht 182.9 cm; Wt 97.1 kg
[2019-09-05] MEDS ORDERED: LEVO-T75 MCG PO (18:43)
[2019-09-05] MEDS ORDERED: DILANTIN50 MG PO (18:51)
[2019-09-05 19:15] LABS: BASOPHILS 1.1 % (0.0-2.0); EOSINOPHILS 1.5 % (0.0-3.0); HEMATOCRIT 38.6 % (42.0-52.0); MCH 29.3 pg (26.0-34.0); MCHC 33.7 g/dL (28.0-37.0); MCV 86.9 fL (80.0-100.0); PLATELET COUNT 250 thou/uL (150-400); POLYS 53.4 % (36.0-66.0); RBC 4.44 mil/uL (4.50-6.00); RDW 14.4 % (10.5-14.5); WBC 5.7 thou/uL (4.0-11.0)
[2019-09-05 19:23] LABS: ANION GAP 8 mmol/L (7-16); BUN 23 mg/dL (7-18); CALCIUM 8.8 mg/dL (8.5-10.1); CHLORIDE 101 mmol/L (98-107); CO2 28 mmol/L (21-32); CREATININE 1.1 mg/dL (0.7-1.3); GLUCOSE 103 mg/dL (74-106); POTASSIUM 4.3 mmol/L (3.5-5.1); SODIUM 137 mmol/L (136-145)
[2019-09-05 19:29] LABS: ALBUMIN 3.8 g/dL (3.4-5.0); SGOT 22 U/L (15-37); SGPT 18 U/L (30-65); TOTAL BILIRUBIN < 0.1 mg/dL (<0.1-1.0); TOTAL PROTEIN 7.5 g/dL (6.4-8.2)
[2019-09-05 19:56] LABS: URINE BILIRUBIN NEGATIVE (Negative); URINE BLOOD NEGATIVE (Negative); URINE CLARITY CLEAR; URINE COLOR YELLOW; URINE GLUCOSE-RANDOM* NEGATIVE (Negative); URINE KETONES NEGATIVE (Negative); URINE LEUKOCYTES-REFLEX NEGATIVE (Negative); URINE NITRITE-REFLEX NEGATIVE (Negative); URINE PROTEIN (DIPSTICK) NEGATIVE (Negative); URINE UROBILINOGEN 0.2 E.U./dl (0.2-1.0)
[2019-09-05] MEDS ORDERED: DIASTAT2.5 MG RECTAL (20:19)
[2019-09-05 20:32] VITALS: BP 121/76
== END 2019-09-05 20:36 | disposition home or self-care (01) ==
LOC: ER 18:22
PROVIDERS: Emergency Medicine
DX: R56.9 Unspecified convulsions (principal); F31.9 Bipolar disorder, unspecified; M19.90 Unspecified osteoarthritis, unspecified site; E03.9 Hypothyroidism, unspecified; Z86.711 Personal history of pulmonary embolism; Z87.440 Personal history of urinary (tract) infections

== ENCOUNTER 2019-09-10 19:23 | Emergency (ER) | payer OTHER ==
[~2019-09-10] VITALS: Ht 185.4 cm; Wt 96.6 kg
[~2019-09-10 19:23] MED LIST changes: +DIASTAT2.5 MG RECTAL; +DILANTIN50 MG PO; +LEVO-T75 MCG PO
[2019-09-10 22:21] LABS: ABSOLUTE NEUTROPHILS 3.5 thou/uL (1.4-8.2); BASOPHILS 0.9 % (0.0-2.0); EOSINOPHILS 1.2 % (0.0-3.0); HEMATOCRIT 47.6 % (42.0-52.0); HEMOGLOBIN 15.8 gm/dL (14.0-18.0); LYMPHOCYTES 33.1 % (24.0-44.0); MCH 29.4 pg (26.0-34.0); MCHC 33.2 g/dL (28.0-37.0); MCV 88.4 fL (80.0-100.0); MONOCYTES 6.7 % (1.0-8.0); PLATELET COUNT 275 thou/uL (150-400); POLYS 58.1 % (36.0-66.0); RBC 5.38 mil/uL (4.50-6.00); RDW 14.4 % (10.5-14.5)
[2019-09-10 22:25] LABS: CALCIUM 9.7 mg/dL (8.5-10.1); CREATININE 0.9 mg/dL (0.7-1.3); POTASSIUM 4.1 mmol/L (3.5-5.1)
[2019-09-10 22:31] VITALS: BP 124/62
== END 2019-09-10 22:32 | disposition home or self-care (01) ==
LOC: ER 19:23
PROVIDERS: Nurse Practitioner Family
DX: S01.81XA Laceration without foreign body of other part of head, initial encounter (principal); E03.9 Hypothyroidism, unspecified; F31.9 Bipolar disorder, unspecified; M19.90 Unspecified osteoarthritis, unspecified site; Z86.711 Personal history of pulmonary embolism; Z87.440 Personal history of urinary (tract) infections; W18.39XA Other fall on same level, initial encounter; Y92.89 Other specified places as the place of occurrence of the external cause; Y93.89 Activity, other specified; Y99.8 Other external cause status

== ENCOUNTER 2019-10-12 19:35 | Emergency (ER) | payer OTHER ==
[~2019-10-12] VITALS: Ht 167.6 cm; Wt 72.6 kg
[2019-10-12] MEDS ORDERED: THICK-IT227 GM PO ×2 (20:06)
[2019-10-12] MEDS ORDERED: COLACE100 MG PO ×2 (20:09)
[2019-10-12] MEDS ORDERED: CHLORPROMAZINE100 MG PO ×2 (20:10)
[2019-10-12] MEDS ORDERED: MUCINEX DM ER1 EACH PO (20:10)
[2019-10-12 20:43] LABS: URINE BILIRUBIN NEGATIVE (Negative); URINE BLOOD 2+ (Negative); URINE CLARITY CLEAR; URINE COLOR YELLOW; URINE GLUCOSE-RANDOM* NEGATIVE (Negative); URINE KETONES NEGATIVE (Negative); URINE LEUKOCYTES-REFLEX NEGATIVE (Negative); URINE NITRITE-REFLEX NEGATIVE (Negative); URINE PROTEIN (DIPSTICK) NEGATIVE (Negative); URINE UROBILINOGEN 0.2 E.U./dl (0.2-1.0)
[2019-10-12 20:54] LABS: BACTERIA-REFLEX None Seen /HPF (None Seen); CRYSTALS None Seen /LPF (None Seen); HYALINE CASTS 0-3 Few /LPF (None Seen); SQUAMOUS None Seen /LPF (0-3); URINE RBC >20 Many /HPF (0-2); URINE WBC-REFLEX None Seen /HPF (0-5)
[2019-10-12] MEDS ORDERED: FLOMAX0.4 MG PO ×2 (21:17)
[2019-10-12 22:03] VITALS: BP 125/83
== END 2019-10-12 22:05 | disposition home or self-care (01) ==
LOC: ER 19:35
PROVIDERS: Emergency Medicine
DX: R31.9 Hematuria, unspecified (principal); R33.9 Retention of urine, unspecified; M19.90 Unspecified osteoarthritis, unspecified site; F31.9 Bipolar disorder, unspecified; E03.9 Hypothyroidism, unspecified

== ENCOUNTER 2019-10-17 23:24 | Inpatient (IN) | payer OTHER ==
[~2019-10-17] VITALS: Ht 177.8 cm; Wt 90.7 kg
[~2019-10-17 23:24] MED LIST changes: +COLACE100 MG PO; +FLOMAX0.4 MG PO; +THICK-IT227 GM PO
[2019-10-17 23:25] VITALS: BP 149/77
[2019-10-18] VITALS (8 sets, daily range): BP systolic 92–112; BP diastolic 49–70
[2019-10-18 00:52] LABS: CREATININE 1.2 mg/dL (0.7-1.3); POTASSIUM 3.9 mmol/L (3.5-5.1)
[2019-10-18 00:53] LABS: ABSOLUTE NEUTROPHILS 4.9 thou/uL (1.4-8.2); BASOPHILS 0.3 % (0.0-2.0); EOSINOPHILS 0.6 % (0.0-3.0); HEMOGLOBIN 13.9 gm/dL (14.0-18.0); LYMPHOCYTES 11.4 % (24.0-44.0); MCH 29.5 pg (26.0-34.0); MCHC 33.1 g/dL (28.0-37.0); MONOCYTES 1.1 % (1.0-8.0); PLATELET COUNT 237 thou/uL (150-400); POLYS 86.6 % (36.0-66.0); RBC 4.71 mil/uL (4.50-6.00); RDW 14.3 % (10.5-14.5); WBC 5.6 thou/uL (4.0-11.0)
[2019-10-18 01:33] LABS: URINE BILIRUBIN 2+ (Negative); URINE BLOOD 3+ (Negative); URINE CLARITY CLOUDY; URINE COLOR RED; URINE GLUCOSE-RANDOM* NEGATIVE (Negative); URINE KETONES NEGATIVE (Negative); URINE PROTEIN (DIPSTICK) 1+ (Negative); URINE SPECIFIC GRAVITY 1.015 (1.005-1.035); URINE UROBILINOGEN 0.2 E.U./dl (0.2-1.0)
[2019-10-18 01:34] LABS: URINE LEUKOCYTES-REFLEX 3+ (Negative); URINE NITRITE-REFLEX POSITIVE (Negative)
[2019-10-18 01:54] LABS: SQUAMOUS 0-3 Few /LPF (0-3); URINE RBC >20 Many /HPF (0-2); URINE WBC-REFLEX >25 Many /HPF (0-5); WBC CLUMPS Packed (None Seen)
[2019-10-18 01:55] LABS: CASTS None Seen /LPF (None Seen); MUCUS 0-3 Light strn/LPF (None Seen); TRIPLE PHOSPHATE CRYSTALS 4-10 Moderate /LPF (None Seen)
[2019-10-18] MEDS ORDERED: ONFI10 MG PO ×2 (03:23→03:31)
[2019-10-18] MEDS ORDERED: LORAZEPAM 1 MG T1 MG PO ×2 (03:24)
[2019-10-18] MEDS ORDERED: DILANTIN50 MG PO ×2 (03:25)
[2019-10-18] MEDS ORDERED: ZOFRAN 4 MG ORAL4 MG PO ×2 (03:28)
[2019-10-18] MEDS ORDERED: LORATIDINE 10 M10 M1 PO ×2 (03:30)
[2019-10-18] MEDS ORDERED: LEVOTHYROXINE50 MCG PO ×2 (03:30)
--- NOTE | 2019-10-18 03:30 | NUR ---
Pt. admitted to the unit from the emergency room accompanied by staff. He is alert, but difficult to understand at times due to his sluggish speech. Pt. offers no complaints. Pt. came to the unit with a pitt catheter in place. Shirley COLTEN wanted pitt catheter out. When pitt catheter was removed a large amount of gross hematuria came out. Bed alarm is on.
[2019-10-18] MEDS ORDERED: MIRALAX119 GM PO ×2 (03:43)
[2019-10-18] MEDS ORDERED: PHENYTOIN50 MG PO ×2 (04:08)
[2019-10-18 04:43] LABS: ALBUMIN 4.2 g/dL (3.4-5.0); DIRECT BILIRUBIN 0.1 mg/dL (<0.1-0.3); TOTAL BILIRUBIN 0.4 mg/dL (<0.1-1.0); TOTAL PROTEIN 8.7 g/dL (6.4-8.2)
--- NOTE | 2019-10-18 08:00 | NUR ---
PT WITH DISTENDED BLADDER..SCANNED WITH GREATER THAN 500 ML PRESENT.. NOTIFIED DR MARES...ATTEMPTED UNSUCCESSFULLY TO PLACE THREE [address] MISHRA...UNABLE TO PLACE...RECEIVED ORDER FOR COUDE CATH..PLACED COUDE CATH AND MANUALLY IRRIGATED CATH THIS SHIFT WITH SMALL CLOTS AND DARK RED BLOOD RETURNED...ABDOMEN STILL APPEARS DISTENDED...DR VALENTE NOTIFIED AND CT SCAN TO BE ORDERED...
[2019-10-18 18:04] LABS: HEMATOCRIT 34.6 % (42.0-52.0); MCH 29.3 pg (26.0-34.0); MCHC 32.7 g/dL (28.0-37.0); MCV 89.5 fL (80.0-100.0); RBC 3.87 mil/uL (4.50-6.00); RDW 14.8 % (10.5-14.5)
[2019-10-18 18:13] LABS: HEMOGLOBIN 11.3 gm/dL (14.0-18.0); PLATELET COUNT 149 thou/uL (150-400); WBC 19.9 thou/uL (4.0-11.0)
[2019-10-18 19:00] LABS: ABSOLUTE NEUTROPHILS 14.5 thou/uL (1.4-8.2)
--- NOTE | 2019-10-18 22:42 | NUR ---
Bladder irrigation ongoing; output is bloody and clots are present. Patient is cooperative. Nursing will continue to monitor.
[2019-10-19 03:26] VITALS: BP 119/68
[2019-10-19 05:36] LABS: HEMATOCRIT 32.2 % (42.0-52.0); HEMOGLOBIN 10.5 gm/dL (14.0-18.0); MCH 29.3 pg (26.0-34.0); MCHC 32.6 g/dL (28.0-37.0); RBC 3.58 mil/uL (4.50-6.00); RDW 14.5 % (10.5-14.5); WBC 13.6 thou/uL (4.0-11.0)
[2019-10-19 05:45] LABS: CALCIUM 8.2 mg/dL (8.5-10.1); CREATININE 0.8 mg/dL (0.7-1.3)
[2019-10-19 07:25] VITALS: BP 112/73
--- NOTE | 2019-10-19 08:42 | NUR ---
ON-GOING ASSESSMENT: CM RECEIVED CONSULT PT MAY NEED TO TRANSFER FOR ANOTHER HOSPITAL FOR UROLOGY EVAL. HUMBERTO SPOKE WITH DR MARES WHO REQUEST THIS. CM REACHED OUT TO PATIENTS GUARDIAN/SISTER EDENILSON AND THEY REQUEST TRANSFER TO [facility]. CM CONTACTED [facility] TRANFER LINE [phone] REQUESTING TRANSFER FOR [facility] AND FAXED CLINICALS TO THEM AT [phone]. THEY WILL SEND INFORMATION TO [facility] TO SEE IF THEY WILL ACCEPT THE PATIENT AND GET BACK WITH [facility]. CM PROVIDED DR APONTE CONTACT INFO WELL BEDSIDE RN AND CM. CM WILL AWAIT INPUT.
[2019-10-19 11:35] VITALS: BP 120/75
[2019-10-19 15:13] VITALS: BP 132/83
[2019-10-19] MEDS ORDERED: ROCEPHIN 11 GM/1001 IV ×2 (17:37)
--- NOTE | 2019-10-19 18:33 | NUR ---
CALLED PT'S SISTER TO INFORM OF TRANSPORT TO [facility].
--- NOTE | 2019-10-19 18:53 | NUR ---
PT PICKID UP FOR TRANSPORT BY [facility]. CALL TO UPDATE [facility] AND TALK TO JACI AZAR, INFORM THAT I CLEANED PT AND STARTED NEW STAT LOCK, AND PLACED IN CLEAN GOWN. TO TRANSFERED TO [facility].
--- NOTE | 2019-10-20 08:36 | NUR ---
PT HOME CONTROLLED MED DID NOT GO WITH HIM TO [facility]. [facility] AND DELIVERED BY MYSELF TO PHARMACY TO BE LOCKED UP IN SAFE. CONTACT PT'S RN AT [facility] TO INFORM THAT MED IS LOCKED UP IN PHARMACY AT [facility]
== END 2019-10-19 18:47 | disposition short-term general hospital (02) | DRG 698 ==
LOC: ER 23:24 → EROBS 10-18 02:27 → 3W 10-18 02:27
PROVIDERS: Emergency Medicine; Nurse Practitioner Acute Care; ADMIT Hospitalist
DX: T83.511A Infection and inflammatory reaction due to indwelling urethral catheter, initial encounter (principal); A41.9 Sepsis, unspecified organism; R65.20 Severe sepsis without septic shock; E03.9 Hypothyroidism, unspecified; N39.0 Urinary tract infection, site not specified; G40.909 Epilepsy, unspecified, not intractable, without status epilepticus; F31.9 Bipolar disorder, unspecified; M19.90 Unspecified osteoarthritis, unspecified site; F79 Unspecified intellectual disabilities; Y84.6 Urinary catheterization as the cause of abnormal reaction of the patient, or of later complication, without mention of misadventure at the time of the procedure; Y92.89 Other specified places as the place of occurrence of the external cause; Z79.899 Other long term (current) drug therapy; Z86.711 Personal history of pulmonary embolism
CPT/HCPCS: 10879

== ENCOUNTER 2019-11-08 13:56 | Inpatient (IN) | payer OTHER ==
[~2019-11-08] VITALS: Ht 180.3 cm; Wt 91.6 kg
[2019-11-08] VITALS (8 sets, daily range): BP systolic 119–140; BP diastolic 68–87
[~2019-11-08 13:56] MED LIST changes: +LEVOTHYROXINE50 MCG PO; +LORATIDINE 10 M10 M1 PO; +LORAZEPAM 0.50.5 MG PO; +LORAZEPAM 1 MG T1 MG PO; +MIRALAX119 GM PO; +ROCEPHIN 11 GM/1001 IV; +ZOFRAN 4 MG ORAL4 MG PO
[2019-11-08 14:39] LABS: ABSOLUTE NEUTROPHILS 9.8 thou/uL (1.4-8.2); BASOPHILS 0.4 % (0.0-2.0); EOSINOPHILS 3.9 % (0.0-3.0); HEMATOCRIT 38.9 % (42.0-52.0); HEMOGLOBIN 12.6 gm/dL (14.0-18.0); LYMPHOCYTES 13.4 % (24.0-44.0); MCH 27.9 pg (26.0-34.0); MCHC 32.4 g/dL (28.0-37.0); MCV 86.3 fL (80.0-100.0); MONOCYTES 11.6 % (1.0-8.0); PLATELET COUNT 398 thou/uL (150-400); POLYS 70.7 % (36.0-66.0); RBC 4.51 mil/uL (4.50-6.00); RDW 15.3 % (10.5-14.5); WBC 13.9 thou/uL (4.0-11.0)
[2019-11-08 14:53] LABS: ANION GAP 10 mmol/L (7-16); BUN 19 mg/dL (7-18); CALCIUM 9.4 mg/dL (8.5-10.1); CHLORIDE 100 mmol/L (98-107); CO2 27 mmol/L (21-32); CREATININE 0.8 mg/dL (0.7-1.3); GLUCOSE 126 mg/dL (74-106); POTASSIUM 3.5 mmol/L (3.5-5.1); SODIUM 137 mmol/L (136-145)
[2019-11-08 14:57] LABS: TROPONIN-I <0.06 ng/mL (<0.06)
[2019-11-08] MEDS ORDERED: KEPPRA 500 MG500 MG PO ×2 (15:34)
[2019-11-08] MEDS ORDERED: COLACE100 MG PO (15:36)
[2019-11-08 16:57] LABS: URINE BILIRUBIN NEGATIVE (Negative); URINE BLOOD NEGATIVE (Negative); URINE CLARITY CLEAR; URINE COLOR YELLOW; URINE GLUCOSE-RANDOM* NEGATIVE (Negative); URINE KETONES NEGATIVE (Negative); URINE LEUKOCYTES-REFLEX NEGATIVE (Negative); URINE NITRITE-REFLEX NEGATIVE (Negative); URINE PROTEIN (DIPSTICK) TRACE (Negative); URINE SPECIFIC GRAVITY >= 1.030 (1.005-1.035); URINE UROBILINOGEN 0.2 E.U./dl (0.2-1.0)
[2019-11-08 17:04] LABS: AMP/METHAMP Negative (Negative); BARBITURATES Negative (Negative); BENZODIAZEPINES POSITIVE (Negative); COCAINE Negative (Negative); METHADONE Negative (Negative); OPIATES Negative (Negative); PCP Negative (Negative)
[2019-11-08 18:08] LABS: APTT 28.7 Seconds (24.5-32.8); INR 1.1; PROTIME 10.9 Seconds (9.3-11.4)
[2019-11-09] VITALS (24 sets, daily range): BP systolic 109–139; BP diastolic 63–82
--- NOTE | 2019-11-09 08:03 | EKG ---
[address] [place] [address] ELECTROCARDIOGRAM REPORT Name: LORETTAJUICE Julissa Room #: 243-P ADM IN M.R.#: [id number] Admission: 11/08/19 Attend Phys: Nic Gipson MD Discharge: Date of : 67 Report #: [id number] THIS REPORT FOR: //name// [facility] ED Test Date: 2019-11-08 Test Time: 14:33:24 Pat Name: JUICE BURGOS Department: Room: [facility] Gender: M Engraver Picture: ANTWAN : 1965 Requested By: Joel Lau Order Number: [id number] MD: Liam Mccoy Measurements Intervals [place] Rate: 79 P: 20 DE: 179 QRS: -26 QRSD: 108 T: 47 QT: 428 QTc: 491 Interpretive Statements Sinus rhythm RSR' in V1 or V2, right VCD Leftward axis Borderline prolonged QT interval Compared to ECG 06/08/2017 20:23:13 no significant change was found Electronically Signed On 11-09-2019 8:03:30 ELEVATORS INSPECTOR by Liam Mccoy [email or web address] <ELECTRONICALLY SIGNED> By: Liam Mccoy MD, [facility] 11/09/19 0803 1433 1433 Liam Mccoy MD, [facility] /EPI
[2019-11-09] MEDS ORDERED: VIMPAT200 MG PO ×2 (08:58)
[2019-11-09] MEDS ORDERED: MIRALAX119 GM PO (08:59)
[2019-11-09] MEDS ORDERED: DIASTAT2.5 MG RECTAL ×2 (09:01)
[2019-11-09] MEDS ORDERED: TRIAMCINOLONE A80 G2 TOP (09:03)
[2019-11-09] MEDS ORDERED: PROAIR HFA8.5 GM INH (09:04)
[2019-11-10] VITALS (13 sets, daily range): BP systolic 116–142; BP diastolic 63–93
[2019-11-10 06:06] LABS: HEMATOCRIT 38.9 % (42.0-52.0); HEMOGLOBIN 12.6 gm/dL (14.0-18.0); MCHC 32.5 g/dL (28.0-37.0); MCV 86.3 fL (80.0-100.0); PLATELET COUNT 430 thou/uL (150-400); RBC 4.51 mil/uL (4.50-6.00); RDW 14.9 % (10.5-14.5); WBC 10.2 thou/uL (4.0-11.0)
[2019-11-10 06:18] LABS: ALBUMIN 2.9 g/dL (3.4-5.0); CALCIUM 8.3 mg/dL (8.5-10.1); CREATININE 0.7 mg/dL (0.7-1.3); MAGNESIUM 1.8 mg/dL (1.8-2.4); POTASSIUM 4.1 mmol/L (3.5-5.1); TOTAL BILIRUBIN 0.2 mg/dL (<0.1-1.0); TOTAL PROTEIN 7.4 g/dL (6.4-8.2)
[2019-11-10 07:28] LABS: ABSOLUTE NEUTROPHILS 6.4 thou/uL (1.4-8.2)
[2019-11-11 04:44] VITALS: BP 121/73
[2019-11-11 07:40] VITALS: BP 130/79
[2019-11-11 16:39] VITALS: BP 113/76
[2019-11-11 19:45] VITALS: BP 116/65
[2019-11-12 03:55] VITALS: BP 149/89
[2019-11-12 07:27] VITALS: BP 126/80
[2019-11-12 16:39] VITALS: BP 140/102
[2019-11-12 19:25] VITALS: BP 125/83
[2019-11-13 03:52] LABS: HEMATOCRIT 40.3 % (42.0-52.0); HEMOGLOBIN 13.1 gm/dL (14.0-18.0); MCH 28.2 pg (26.0-34.0); MCHC 32.4 g/dL (28.0-37.0); MCV 87.1 fL (80.0-100.0); RBC 4.62 mil/uL (4.50-6.00); RDW 15.6 % (10.5-14.5); WBC 10.5 thou/uL (4.0-11.0)
[2019-11-13 03:55] VITALS: BP 126/83
[2019-11-13 03:55] LABS: CALCIUM 9.4 mg/dL (8.5-10.1); CREATININE 0.7 mg/dL (0.7-1.3); POTASSIUM 4.3 mmol/L (3.5-5.1)
[2019-11-13 07:57] VITALS: BP 125/83
[2019-11-13 15:42] VITALS: BP 124/90
[2019-11-13 19:34] VITALS: BP 141/87
[2019-11-14 05:05] VITALS: BP 124/80
[2019-11-14 07:47] VITALS: BP 140/91
[2019-11-14] MEDS ORDERED: FIRVANQ50 MG/1 ML PO ×2 (11:33)
[2019-11-14] MEDS ORDERED: DILANTIN100 MG PO ×2 (11:33)
[2019-11-14] MEDS ORDERED: FLORANEX TABLE1 EACH PO ×2 (11:33)
[2019-11-14] MEDS ORDERED: ACETAMINOP160 MG/5 M PO ×2 (11:33)
[2019-11-14] MEDS ORDERED: LIDOCAINE VISC100 ML PO ×2 (11:33)
[2019-11-14] MEDS ORDERED: CEFUROXIME500 MG PO ×2 (11:33)
[2019-11-16] MEDS ORDERED: LIDOCAINE VISC100 ML PO ×2 (18:07)
[2019-11-16] MEDS ORDERED: PROBIOTIC1 EAC1 PO ×2 (18:07)
[2019-11-16] MEDS ORDERED: IPRAT-ALBUT 0.5-3 ML INH ×2 (18:07)
[2019-11-16] MEDS ORDERED: MUCINEX DM ER1 EAC1 PO ×2 (18:07)
[2019-11-16] MEDS ORDERED: NEURONTIN 300M300 M2 PO ×2 (18:07)
[2019-11-16] MEDS ORDERED: LASIX 20 MG TAB20 MG PO ×2 (18:07)
[2019-11-16] MEDS ORDERED: KEPPRA1000 MG PO ×2 (18:07)
--- NOTE | 2019-11-18 13:44 | HC ---
[facility] [place] [address] CONSULTATION Name: JUICE BURGOS Room #: 351-P [facility] IN M.R.#: [id number] Admission: 11/08/19 Attend Phys: Nic Gipson MD Discharge: 11/14/19 Date of : 67 Report #: [id number] THIS REPORT FOR: //name// CC: Serge Gipson DATE OF SERVICE: 11/08/2019 HISTORY OF PRESENT ILLNESS: This is a 54-year-old male patient who is unable to provide any history at all. I talked to Emergency Room physician, Dr. Lau, and there is a caregiver there. He provided most of the history and some of the history I got from reviewing this patient's records. History is still not very clear. The caregiver tells me that he has been the caregiver for the last 4 years. He indicates that the patient has a mental retardation and he gets what he described as petit mal seizure. I am not sure what that it means, but basically, he stares into the blank, then he becomes better. His grand mal seizure is not frequent, but he apparently had a few when he had a urinary tract infection. That record was reviewed and in fact, this patient was admitted to this hospital on 10/18/2019 with increased frequency of seizure. He apparently also has a vagus nerve stimulator and they have used the magnet for that. History is unclear after that. It looks like the patient got admitted to [facility] around the [facility]. So if that history is correct, he went to [facility] after he was dismissed from here. It is not clear how much frequency of the seizure has increased. Looks like they readjusted his medication. One of the records indicates that here he was on Dilantin and Lamictal. The caregiver tells me that they changed it to a combination of Keppra, Vimpat and Dilantin. It is not clear what his dosages were and it is not clear who saw him at [facility]. He has a baseline mental retardation. It is not clear what the cause of that is. He does have a longstanding history of seizure. He had at one time nausea and vomiting and was not taking his seizure medication properly. He does have fractures in the past and abrasions as per records. I am not sure what those are from. REVIEW OF SYSTEMS: A 14-point review of system was attempted from the records. I am not able to get a good history even after talking to the patient's caregiver. All the history and 14-point review of systems is summarized as described above. The best I can tell, he had a seizure disorder, he apparently has a bipolar disorder, he had mental retardation. From the last several days, he is not waking up. He had laceration. He had IVC filter. He has hypothyroidism. He has osteoarthritis. He has a vagus nerve stimulator that is the history I can tell from the record. [address] [address] CONSULTATION Name: JUICE BURGOS Julsisa Room #: 351-P DIS IN M.R.#: [id number] Admission: 11/08/19 Attend Phys: Nic Gipson MD Discharge: 11/14/19 Date of : 67 Report #: [id number] PAST MEDICAL HISTORY: Positive for seizure and mental retardation. FAMILY HISTORY: Unavailable. SOCIAL HISTORY: He has a 24-hour care. PHYSICAL EXAMINATION: Pretty limited. He does not respond. He keeps his eyes closed. When you really stimulated him, he tried to open his eyes. He does not follow any command. He had no speech output for me. Caregiver tells me he is like that for the last 2-3 days. He appeared to be moving all 4 extremities. There is no meningeal sign. He is moderately built individual who does not have any dysmorphic features of eyes, ears and face, the best I can tell. His blood pressure is 140/79, respiration is 27, pulse is 81, temperature is 97.1. LABORATORY DATA: White count is 13.9, which is elevated slightly. His CT scan of the head shows a question of stroke. He apparently has a stimulator and cannot have an MRI according to the caregiver. IMPRESSION: Pretty complicated patient, from which is no good history is available and no diagnosis is possible at this state. It looks like he has intractable seizures and his medication has been readjusted recently. We need to get a list of his medication and try to simplify his anticonvulsant regimen. We will see if an EEG can be done in this patient. I will try to get the records from [facility] and I will review that once available. He is also Dilantin toxic. We need to hold his Dilantin until the Dilantin level come down, but we would like to start another medication as soon as we can find out what other medication he was taking. Thank you very much for this referral and if you have questions, please feel free to contact me. <ELECTRONICALLY SIGNED> By: Farhan Townsend MD 11/18/19 1344 [id number] [id number] Farhan Townsend MD /nt
--- NOTE | 2019-11-18 13:44 | HC ---
[facility] [place] [address] CONSULTATION Name: JUICE BURGOS Room #: 351-P [facility] IN M.R.#: [id number] Admission: 11/08/19 Attend Phys: Nic Gipson MD Discharge: 11/14/19 Date of : 67 Report #: [id number] THIS REPORT FOR: //name// CC: Serge Gipson DATE OF SERVICE: 11/10/2019 HISTORY OF PRESENT ILLNESS: This 54-year-old male patient was seen by me this morning. I got the records from [place]. It looks like he was on multiple medications when he was in [place]. I do not know which neurologist follow this patient. He cannot tell me, but looks like he was on a heavy dose of Keppra with 2000 b.i.d. and he was on Lamictal 300 b.i.d., which is also pretty good dose and lacosamide 200 mg b.i.d. It is not clear what Dilantin he was taking. His Dilantin continues to be in the toxic range today. PHYSICAL EXAMINATION: His examination is still limited. He talks. He is more alert than when he came in. He can some time follow simple command. Today, he moved all 4 extremities. He refused to cooperate with the cranial nerve examination. He does not appear to be in any respiratory difficulty. He had no seizure when he is here. We cannot do an MRI with his vagus nerve stimulator. Since he was already on such a high dosages of multiple anticonvulsants, I will leave him on that. He needs to go back to his own neurologist or more likely epileptologist to simplify his anticonvulsant regimen. That needs to be done as an outpatient. His Dilantin need to be restarted once the Dilantin level comes to be therapeutic. Dr. Mack will follow up this patient with you from tomorrow. Thank you very much. <ELECTRONICALLY SIGNED> By: Farhan Townsend MD 11/18/19 1344 [id number] [id number] Farhan Townsend MD /nt
== END 2019-11-14 16:02 | DRG 64 ==
LOC: ER 13:56 → ICU 17:28 → EROBS 17:28 → 3W 17:28 → ICU 18:29 → 3W 11-10 23:08 → ENTRNSPT 11-14 15:51 → 3W 11-14 16:02
PROVIDERS: Emergency Medicine; ADMIT Internal Medicine
DX: I63.9 Cerebral infarction, unspecified (principal); J18.9 Pneumonia, unspecified organism; G93.41 Metabolic encephalopathy; N39.0 Urinary tract infection, site not specified; F31.9 Bipolar disorder, unspecified; M19.90 Unspecified osteoarthritis, unspecified site; E03.9 Hypothyroidism, unspecified; R41.0 Disorientation, unspecified; G40.409 Other generalized epilepsy and epileptic syndromes, not intractable, without status epilepticus; R13.10 Dysphagia, unspecified; I34.0 Nonrheumatic mitral (valve) insufficiency; F79 Unspecified intellectual disabilities; T42.0X5A Adverse effect of hydantoin derivatives, initial encounter; Y92.89 Other specified places as the place of occurrence of the external cause; Z86.711 Personal history of pulmonary embolism; Z95.828 Presence of other vascular implants and grafts
CPT/HCPCS: 10078; 10879

== ENCOUNTER 2019-11-14 13:28 | Inpatient (IN) | payer OTHER ==
[~2019-11-14] VITALS: Ht 180.3 cm; Wt 91.2 kg
--- NOTE | ~2019-11-14 | H ---
[facility] [place] [address] HISTORY AND PHYSICAL Name: JUICE BURGOS Room #: 513-P ADM IN M.R.#: [id number] Admission: 11/14/19 Attend Phys: Hector Higgins MD Discharge: Date of : 67 Report #: [id number] THIS REPORT FOR: //name// CC: Hector Becker DATE OF SERVICE: 11/15/2019 Note: I am covering for Dr. Hector Higgins today and therefore completing this history and physical for him. Dr. Hector Higgins will be the attending physician. CHIEF COMPLAINT: Weakness. HISTORY OF PRESENT ILLNESS: The patient is a pleasant 54-year-old male who was admitted to [facility] on 11/08/2019 from a [facility] with an impaired mental status from baseline. 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 At that time, he had a complicated catheter issue associated UTI and urinary retention with hematuria. At that time, a bladder mass was found and a possible hematoma was identified after various bladder catheterization attempts. He became an acute inpatient and Urology consultation was required. He was transferred to [facility] on 10/19/2019 for further care. He was stabilized and the catheter was eventually removed. He was returned to his [facility]. He had a decline in his level of cognition for a couple of weeks prior to the admission to [facility]. He had no obvious medications are notable issues according to records. A CT scan of the head was read as showing a possible ischemic stroke versus a mass. Neurosurgery was consulted and recommended admission. During his hospital course, he was diagnosed with wvsjv-tc-hbnclzz encephalopathy. He was felt to have sustained an acute/subacute ischemic stroke in the right internal capsule, but also this could have been more chronic injury. The differential diagnosis was possible mass. An MRI could not safely be obtained due to his implantable spinal cord stimulator. Internal medicine is awaiting further neurosurgical opinion. It was determined that an inpatient rehabilitation stay would be appropriate for him as he could not manage in his mcfp in his current state and [facility] could not provide the level of care that is required for him. In addition to his congenital cognitive impairment, he has a bipolar disorder and mood disorder as well as a generalized seizure disorder with an implantable vagal nerve stimulator. He has a complex medical condition and will require intensive medical oversight and therapies. [address] [address] HISTORY AND PHYSICAL Name: JUICE BURGOS Room #: 513-P [facility] IN ..#: [id number] Admission: 11/14/19 Attend Phys: Hector Higgins MD Discharge: Date of : 67 Report #: [id number] PAST MEDICAL HISTORY: As above, also osteoarthritis, dysphagia, history of an IVC filter placement for PE and hypothyroidism. SOCIAL HISTORY: He lives in a mcfp. He states he did not use an assistive device to ambulate prior to admission. ALLERGIES: No known drug allergies. FAMILY HISTORY: The patient is unable to provide this history for me due to cognitive impairment. REVIEW OF SYSTEMS: The patient is unable to provide this information to me due to cognitive impairment. A 14-point review of systems was attempted. PHYSICAL EXAMINATION: GENERAL: No acute distress, well developed, well-nourished. He was sitting in the chair when I entered the room. CARDIOVASCULAR: Pulses are 2+ and regular. LUNGS: Aerating well. ABDOMEN: Soft, nontender, nondistended, positive bowel sounds. EXTREMITIES: Calves are nontender. LYMPHATICS: No cervical adenopathy. MUSCULOSKELETAL: Functionally, he had difficulty participating in formal musculoskeletal testing, but was able to move all 4 extremities without an obvious motor deficit. Tone was possibly increased, but it was difficult to get the patient to follow commands. NEUROLOGIC/PSYCHIATRIC: Coordination is fair. Muscle stretch reflexes are 1/4 and symmetric. He was sitting up in the chair. Sensation is difficult to assess, but appears to be intact. He was awake for the exam. He has obvious cognitive impairment and has difficulty providing information to me. SKIN: No ulcerations were identified. IMPRESSION: 1. Mobility and self-care deficits in a 54-year-old male secondary to acute on chronic encephalopathy with possible acute/subacute ischemic stroke in the right internal capsule. 2. Possible brain mass, awaiting further neurosurgical opinion. The patient cannot have MRI of the brain due to implantable spinal cord stimulator. 3. Advanced congenital neurocognitive impairment. 4. Recent hospitalization for urosepsis, urinary retention and hematuria. 5. Generalized seizure disorder with implantable vagal nerve stimulator and treated with medications. 6. Bipolar mood disorder. 7. Osteoarthritis of multiple joints. 8. Hypothyroidism. [address] [address] HISTORY AND PHYSICAL Name: JIUCE BURGOS Room #: 513-P [facility] IN M.R.#: [id number] Admission: 11/14/19 Attend Phys: Hector Higgins MD Discharge: Date of : 67 Report #: [id number] 9. History of PE with IVC filter placement. 10. History of dysphagia, we will continue working with speech therapy. PLAN: Admit to the rehabilitation unit for comprehensive therapies. Consultations to Internal Medicine, Behavioral Health and Neurosurgery as applicable. Dr. Higgins will return to the hospital on 11/17/2019 for further management of this case. POST ADMISSION PHYSICIAN EVALUATION: A post-admission physician evaluation has been completed. The patient's preadmission screening was reviewed in its entirety by this examiner. The current clinical status is supported by the information contained within. The patient is an appropriate candidate to undergo a comprehensive inpatient rehabilitation program consisting of physical therapy, occupational therapy and speech therapy, 3 hours daily for at least 5 days a week. Furthermore, nothing has changed since the preadmission screen was completed to suggest that the patient would not be able to tolerate or benefit from the rehabilitation program. It is my opinion that the inpatient rehabilitation program is more appropriate for him due to his multiple medical needs, requiring comprehensive followup care. He is at risk of clinical complications during participation in rehabilitation including injury to himself further seizures, further neurologic decline and falls. My plan to manage these conditions, which could impact his participation in rehabilitation is to consult Internal Medicine and provide 24-hour rehabilitation nursing care to him to follow him closely during his rehabilitation course. INDIVIDUALIZED OVERALL PLAN OF CARE: Summarization of findings, the patient is receiving inpatient rehabilitation due to the impairments listed above. Identified interventions include physical therapy, occupational therapy and speech therapy to address his mobility, self-care deficits communication deficits, cognitive deficits and swallowing impairments. Physical Medicine and Rehabilitation will provide management of his rehabilitation care plan. Internal Medicine will follow up for multiple medical issues. Rehabilitation nursing care will be available 24 hours a day for his care needs. superintendent oil well services will be available for his discharge planning and medical equipment needs. ESTIMATED LENGTH OF STAY: Approximately 21 days, which is in agreement with the preadmission screen. Anticipated functional outcome is modified independent with mobility and self-care skills. Anticipated discharge destination is to his [facility] with home health [facility] [address] [place] [address] HISTORY AND PHYSICAL Name: JUICE BURGOS Room #: 513-P ADM IN ..#: [id number] Admission: 11/14/19 Attend Phys: Hector Higgins MD Discharge: Date of : 67 Report #: [id number] therapies. MEDICAL PROGNOSIS: Good. He will continue to receive Internal Medicine followup. We will continue to pursue treatment plan from Neurosurgery. Anticipated therapies include physical therapy, occupational therapy and speech therapy, 3 hours a day, 5 days a week for an anticipated duration of 21 days. SUMMARIZATION OF TREATMENT PLAN: The patient will continue to receive an inpatient rehabilitation program as outlined in an effort to improve his overall function and return home at a modified independent level within 21 days. By: 1435 1528 Stanley Hinton, /nt
--- NOTE | ~2019-11-14 | EKG ---
[address] [place] [address] ELECTROCARDIOGRAM REPORT Name: REJI BURGOSY Julissa Room #: 513-P ADM IN M.R.#: [id number] Admission: 11/14/19 Attend Phys: Hector Higgins MD Discharge: Date of : 67 Report #: [id number] THIS REPORT FOR: //name// [facility] Test Date: 2019-11-16 Test Time: 12:02:28 Pat Name: JUICE BURGOS Department: Room: 513 Gender: M Platform Man: CROW : 1965 Requested By: Gio Sanches Order Number: [id number] MD: Measurements Intervals [place] Rate: 97 P: -3 RI: 182 QRS: -69 QRSD: 102 T: 58 QT: 366 QTc: 465 Interpretive Statements Sinus rhythm Probable left atrial enlargement Incomplete RBBB and LAFB RSR' in V1 or V2, right VCD or RVH ST elevation, consider inferior injury Compared to ECG 11/08/2019 14:33:24 Left anterior fascicular block now present Incomplete right bundle-branch block now present Right bundle-branch block now present Right ventricular hypertrophy now present ST (T wave) deviation now present Myocardial infarct finding now present Left-axis deviation no longer present [email or web address] By: 1202 01 Epiphany EpiphMD allison /ABDIFATAH
[~2019-11-14 13:28] MED LIST changes: +ACETAMINOP160 MG/5 M PO; +CEFUROXIME500 MG PO; +FIRVANQ50 MG/1 ML PO; +FLORANEX TABLE1 EACH PO; +KEPPRA 500 MG500 MG PO; +LIDOCAINE VISC100 ML PO; +PROAIR HFA8.5 GM INH; +VIMPAT200 MG PO
[2019-11-14 16:00] VITALS: BP 141/94
--- NOTE | 2019-11-14 16:05 | NUR ---
chart review, cm visited with pt while he up in recliner chair, on isolation precaution, he opened eyes to calling of his name, answered yes and no question. he is pleasant with confusion and forgetfulness. per chart he lives in senior care [facility]. has roller walker. has supervision with meal and is on honey thick liquids. garden/sister tru listed for contacted. will cont following as needed for dc need. pt being brought up to acute rehab this evening via wheel chair.
--- NOTE | 2019-11-14 17:21 | NUR ---
3710 PATIENT ADMITTED TO ROOM 513. PATIENT IS ALERT TO HIMSELF ONLY. MENDEZ'S, FINANCE TEACHER ARE EQUAL. LUNGS ARE COARSE AND DEMINISHED ON THE LEFT. PATIENT ABD IS SOFT WITH BSXR4. PATIENT HAD A BM TODAY. PATIENT HAS S.L. IN HIS RIGHT HAND. UP IN RECLINER. PT/OT/[facility] IN A.M. PATIENT REFUSED PUREED DIET. S.L. INTACT IN PATIENTS RIGHT HAND. FALL AND SAFETY PROTOCOL IN PLACE. DENIES PAIN. CONTINUES TO PROGRESS SLOWLY TO D/C GOALS. WILL CONTINUE TO MONITER.
[2019-11-14 19:27] VITALS: BP 138/92
--- NOTE | 2019-11-15 02:00 | NUR ---
PT CARE ASSUMED AT APPROXIMATELY 1915 WITH PT SITTING IN HIS RECLINER WATCHING TV.PT IS ALERT TO SELF AND CONFUSE AND FORGETFUL AND CONGNITIVE IMPAIRMENT..SEIZURE PRECAUTION AND FALL PRECAUSTIONS IN PLACE.PT HAS IV ACCESS ON RH SL.PT TAKES MEDICATION IN APPLE SAUCE.PT IS ON PUREE DIET AND NECTAR THICKENED FLUD CONSISTENCY.DIMINISHED AND COARSED LUNG SOUND ON LT LOWER LOBE.PT HAS A MISHRA CATHETER ON.WILL CONTINUE TO MONITOR POC TILL EOS
[2019-11-15 06:50] LABS: HEMATOCRIT 38.3 % (42.0-52.0); HEMOGLOBIN 12.5 gm/dL (14.0-18.0); MCH 28.3 pg (26.0-34.0); MCHC 32.8 g/dL (28.0-37.0); MCV 86.3 fL (80.0-100.0); RBC 4.44 mil/uL (4.50-6.00); RDW 15.6 % (10.5-14.5); WBC 6.9 thou/uL (4.0-11.0)
[2019-11-15 07:07] LABS: CALCIUM 9.7 mg/dL (8.5-10.1); CREATININE 0.7 mg/dL (0.7-1.3); POTASSIUM 4.3 mmol/L (3.5-5.1)
[2019-11-15 07:45] VITALS: BP 143/92
--- NOTE | 2019-11-15 11:07 | NUR ---
ASSUME PT CARE AT 0700. VSS ON RA. REPORTS SLEPT GOOD LAST NIGHT. ALERT TO SELF. REFUSES CARE AT TIME. 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 C/O NECK PAIN 5/10, PRN TYLENOL AND MORNING MEDS GIVEN WITH YOGURT. SPEECH THERAPY SUGGEST TO CRUSHED MEDS WITH PUREED. PROJECT MANAGEMENT PROFESSOR ARE EQUAL. LUNGS ARE COARSE AND DEMINISHED ON THE LEFT. PATIENT ABD IS SOFT WITH BSXR4. PATIENT HAD LARGE SOFT BM TODAY. REFUSED MIRALAX AND COLACE. PT/OT/ST CARDENAS IN A.M. PATIENT REFUSED PUREED DIET. FALL AND SAFETY PROTOCOL IN PLACE. C/O NECK PAIN 5/10, PRN TYLENOL GIVEN. CONTINUES TO PROGRESS SLOWLY TO D/C GOALS. WILL CONTINUE TO MONITER.
--- NOTE | 2019-11-15 11:46 | NUR ---
Nutrition: pt admit to rehab unit S/P right subacute infarct, acute on chronic encephalopathy. Seen per consult related to "difficulty eating". Pt on pureed with nectar thick liquids and ST following for mild-moderate dysphagia. Requires 24 hour supervision and assist. Noted pt refused pureed diet this am but from 11-11 to 11-14 100% intake of meals and supplements is documented. Was receiving Magic cup BID, will order once daily for now. Pt had just finished therapy when RD interviewed and therapist stated he was at his max -answers were very short. Unaware of weight changes but noted high variable weight hx per chart. 200-215# appears usual. Current 201#. Will follow nutritional parameters but consider low nutrition risk at present.
[2019-11-15 18:20] VITALS: BP 144/87
[2019-11-15 18:45] VITALS: BP 131/74
[2019-11-15 18:48] VITALS: BP 144/87
[2019-11-15 19:55] VITALS: BP 127/76
[2019-11-15 20:00] VITALS: BP 127/76
--- NOTE | 2019-11-16 05:05 | NUR ---
PATIENT UNHAPPY WITH CRUSHED MEDS BUT HAS TAKEN MOST WITH APPLESAUCE OR YOGURT WITH HOB FAR BED WILL GO DESPITE SAY NO TO MOST QUERIES. HAS BEEN COUGHING MOST OF MIGHT SINCE THEN. MAGIC MOUTHWASH ON TOOTHETTES USED TO SCRUB TONGUE TOLERATED AND APPARENTLY APPRECIATED. UP TO BSC WITH ONE PERSON ASSIST TWICE FOR BM SMEAR. MISHRA TO DD, WILL NOT CHANGE INTO GOWN AT NIGHT OR EVEN REMOVE HIS SHOES.
--- NOTE | 2019-11-16 07:55 | NUR ---
ASSUME PT CARE AT 0700. CONTINUE TO FOLLOW UP WITH FALL. C/O SORE THROAT. PT HAS BEEN COUGHING ALOT LAST NIGHT. GAVE MAGIC MOUTHWASH AND CONTINUE TO MONITOR. 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 NOTED TREMOR. CALLED AND NOTIFIED DR. NG. OFFERED SUPPORTIVE CARE. VSS ON RA. 125/61, HR100, T99.2, SAT 100% ON RA. R 21. FALL PRECAUTION IN PLACE. CLOSE OBSERVANCE. PT CONTINUE TO BE ON ISOLATION FOR CDIFF, LAST BM WAS YESTERDAY, IT WAS FORMED. PT CONTINUE BM. HAS MISHRA CATH HAD 500CC URINE OUTPUT LAST NIGHT. UP TO WC AT NURSE STATION. MEDS CRUSHED WITH YOGURT. PT DOESN'T LIKE MEDS TO BE CRUSHED. PT COUGHING. NOTIFIED LLOYD IS HERE TO ASSESS PT. WILL CONTINUE TO MONITOR.
[2019-11-16 08:00] VITALS: BP 125/61
[2019-11-16] MEDS ORDERED: NEURONTIN 300M300 M2 PO (18:07)
[2019-11-16] MEDS ORDERED: PROBIOTIC1 EAC1 PO (18:07)
[2019-11-16] MEDS ORDERED: KEPPRA1000 MG PO (18:07)
[2019-11-16] MEDS ORDERED: MUCINEX DM ER1 EAC1 PO (18:07)
[2019-11-16] MEDS ORDERED: LASIX 20 MG TAB20 MG PO (18:07)
[2019-11-16] MEDS ORDERED: LIDOCAINE VISC100 ML PO (18:07)
[2019-11-16] MEDS ORDERED: IPRAT-ALBUT 0.5-3 ML INH (18:07)
== END 2019-11-16 19:46 | disposition short-term general hospital (02) | DRG 64 ==
PROVIDERS: Nurse Practitioner Family; ADMIT Physical Medicine & Rehabilitation
DX: I63.9 Cerebral infarction, unspecified (principal); J18.9 Pneumonia, unspecified organism; G93.40 Encephalopathy, unspecified; F31.9 Bipolar disorder, unspecified; G40.409 Other generalized epilepsy and epileptic syndromes, not intractable, without status epilepticus; M19.90 Unspecified osteoarthritis, unspecified site; E03.9 Hypothyroidism, unspecified; B96.89 Other specified bacterial agents as the cause of diseases classified elsewhere; R33.9 Retention of urine, unspecified; R31.9 Hematuria, unspecified; R00.0 Tachycardia, unspecified; Z86.711 Personal history of pulmonary embolism; Z79.01 Long term (current) use of anticoagulants; Z87.440 Personal history of urinary (tract) infections; R13.10 Dysphagia, unspecified
CPT/HCPCS: 10112

== ENCOUNTER 2019-11-16 21:26 | Inpatient (IN) | payer OTHER ==
[~2019-11-16] VITALS: Ht 177.8 cm; Wt 92.6 kg
[2019-11-16 20:15] VITALS: BP 137/99
[~2019-11-16 21:26] MED LIST changes: +IPRAT-ALBUT 0.5-3 ML INH; +KEPPRA1000 MG PO; +LASIX 20 MG TAB20 MG PO; +MUCINEX DM ER1 EAC1 PO; +NEURONTIN 300M300 M2 PO; +PROBIOTIC1 EAC1 PO
[2019-11-16 23:50] VITALS: BP 133/89
[2019-11-17 03:57] VITALS: BP 106/67
[2019-11-17 05:20] LABS: HEMATOCRIT 37.7 % (42.0-52.0); HEMOGLOBIN 12.4 gm/dL (14.0-18.0); MCH 28.2 pg (26.0-34.0); MCHC 32.8 g/dL (28.0-37.0); MCV 85.9 fL (80.0-100.0); RBC 4.39 mil/uL (4.50-6.00); RDW 15.7 % (10.5-14.5); WBC 7.4 thou/uL (4.0-11.0)
[2019-11-17 05:34] LABS: CALCIUM 8.9 mg/dL (8.5-10.1); CREATININE 0.6 mg/dL (0.7-1.3); MAGNESIUM 1.9 mg/dL (1.8-2.4); POTASSIUM 3.9 mmol/L (3.5-5.1)
[2019-11-17 06:17] LABS: URINE BILIRUBIN NEGATIVE (Negative); URINE BLOOD TRACE (Negative); URINE CLARITY CLEAR; URINE COLOR YELLOW; URINE GLUCOSE-RANDOM* NEGATIVE (Negative); URINE KETONES NEGATIVE (Negative); URINE LEUKOCYTES-REFLEX NEGATIVE (Negative); URINE NITRITE-REFLEX NEGATIVE (Negative); URINE PROTEIN (DIPSTICK) NEGATIVE (Negative); URINE SPECIFIC GRAVITY 1.025 (1.005-1.035); URINE UROBILINOGEN 0.2 E.U./dl (0.2-1.0)
[2019-11-17 07:45] VITALS: BP 133/66
--- NOTE | 2019-11-17 11:27 | 2DMMODE ---
[facility] [address] [place] [address] 2 D/M-MODE ECHOCARDIOGRAM Name: LORETTAJUICE Room #: 351-P ADM IN M.R.#: [id number] Admission: 11/16/19 Attend Phys: Jerod Narayanan Discharge: Date of : 67 Report #: [id number] THIS REPORT FOR: //name// APPROVED REPORT Study performed: 11/17/2019 10:45:56 EXAM: Comprehensive 2D, Doppler, and color-flow Echocardiogram Patient Location: Bedside Room #: [facility] Status: routine BSA: 2.10 HR: 96 bpm BP: 133/66 mmHg Rhythm: NSR Other Information Study Quality: Adequate Technically limited study due to lung interferecne/heavy breathing, no participation. Indications Abnormal EKG, pulmonary congestion. Hx: Seizures, mental retardation. 2D Dimensions RVDd: 31.24 mm IVSd: 11.47 (7-11mm) LVOT Diam: 20.22 (18-24mm) LVDd: 50.06 mm PWd: 11.76 (7-11mm) Ascending Ao: 29.34 (22-36mm) LVDs: 34.20 (25-40mm) Aortic Root: 37.03 mm Volumes Left Atrial Volume (Systole) Single Plane 4CH: 30.53 mL Single Plane 2CH: 36.57 mL LA ESV Index: 17.00 mL/m2 Aortic Valve AoV Peak South.: 1.67 m/s AO Peak Gr.: 11.14 mmHg LVOT Max P.75 mmHg LVOT Max V: 0.97 m/s PARMJIT Vmax: 1.86 cm2 Mitral Valve [facility] [address] [place] [address] 2 D/M-MODE ECHOCARDIOGRAM Name: JUICE BURGOS Room #: 351-P [facility]#: [id number] Admission: 11/16/19 Attend Phys: Jerod Isaac Jan Discharge: Date of : 67 Report #: [id number] E/A Ratio: 1.3 MV Decel. Time: 162.36 ms MV E Max South.: 0.74 m/s MV A South.: 0.58 m/s MV PHT: 47.08 ms IVRT: 62.28 ms Pulmonary Valve PV Peak South.: 1.07 m/s PV Peak Gr.: 4.57 mmHg Tricuspid Valve TR Peak South.: 2.38 m/s TR Peak Gr.: 23.00 mmHg Left Ventricle The left ventricle is normal size. There is normal LV segmental wall motion. There is normal left ventricular wall thickness. Left ventricular systolic function is normal. LVEF is 60%. The left ventricular diastolic function is normal. Right Ventricle The right ventricle is normal size. The right ventricular systolic function is normal. Atria The left atrium size is normal. The right atrium size is normal. Aortic Valve The aortic valve is normal in structure. No aortic regurgitation is present. There is no aortic valvular stenosis. Mitral Valve The mitral valve is normal in structure. There is no mitral valve regurgitation noted. No evidence of mitral valve stenosis. Tricuspid Valve The tricuspid valve is normal in structure. Trace tricuspid regurgitation. Estimated PAP is 23mmHg plus the right atrial pressure. Pulmonic Valve The pulmonary valve is normal in structure. Trace pulmonic regurgitation. Great Vessels [facility] [address] [place] [address] 2 D/M-MODE ECHOCARDIOGRAM Name: JUICE BURGOS Room #: 351-P [facility] IN M.R.#: [id number] Admission: 11/16/19 Attend Phys: Jerod Narayanan Discharge: Date of : 67 Report #: [id number] The aortic root is normal in size. The ascending aorta is normal in size. IVC is not well visualized. Pericardium There is no pericardial effusion. <Conclusion> The left ventricle is normal size. LVEF is 60%. The aortic valve is normal in structure. The mitral valve is normal in structure. The tricuspid valve is normal in structure. Trace tricuspid regurgitation. Estimated PAP is 23mmHg plus the right atrial pressure. The pulmonary valve is normal in structure. Trace pulmonic regurgitation. There is no pericardial effusion. <ELECTRONICALLY SIGNED> By: Reginaldo Morgan MD 11/17/19 1127 26 26 Reginaldo Morgan MD /INF
[2019-11-17 12:18] VITALS: BP 130/57
[2019-11-17 15:39] VITALS: BP 98/55
[2019-11-18 06:03] VITALS: BP 107/54
[2019-11-18 07:47] VITALS: BP 166/102
[2019-11-18 08:15] LABS: HEMATOCRIT 35.5 % (42.0-52.0); HEMOGLOBIN 11.7 gm/dL (14.0-18.0); MCH 27.9 pg (26.0-34.0); MCHC 32.9 g/dL (28.0-37.0); RBC 4.18 mil/uL (4.50-6.00); RDW 15.5 % (10.5-14.5); WBC 3.1 thou/uL (4.0-11.0)
[2019-11-18 08:37] LABS: CALCIUM 9.1 mg/dL (8.5-10.1); CREATININE 0.7 mg/dL (0.7-1.3); POTASSIUM 3.6 mmol/L (3.5-5.1)
[2019-11-18 12:25] VITALS: BP 103/50
--- NOTE | 2019-11-18 13:44 | EEG ---
[facility] [place] [address] ELECTROENCEPHALOGRAM Name: JUICE BURGOS Room #: 351-P ADM IN M.R.#: [id number] Admission: 11/16/19 Attend Phys: Jerod Rose Discharge: Date of : 67 Report #: [id number] THIS REPORT FOR: //name// CC: Jerod Becker DATE OF SERVICE: 11/16/2019 This patient is having seizures. EEG is being done to evaluate that. EEG has a lot of artifact. Some of it is movement artifact and other one is electronic artifact. It is very difficult to interpret. Background activity appeared to be about 8 Hz and 30 microvolts, which is slow. Photic stimulation is unremarkable. The patient became drowsy and that is associated with bilateral slowing. IMPRESSION: This patient's EEG has a lot of artifact. It is not possible to tell whether some of it is seizure activity, but does not look like there is some of it may be seizure activity. That needs to be confirmed, maybe with a video analysis or a prolonged EEG or some other means. Clinical correlation and further workup is recommended. <ELECTRONICALLY SIGNED> By: Farhan Townsend MD 11/18/19 1344 1036 1041 Farhan Townsend MD /nt
== END 2019-11-18 16:33 | DRG 871 ==
LOC: 3W 21:26
PROVIDERS: Hospitalist; Nurse Practitioner Acute Care; ADMIT Hospitalist
DX: A41.9 Sepsis, unspecified organism (principal); J18.9 Pneumonia, unspecified organism; G93.40 Encephalopathy, unspecified; A04.72 Enterocolitis due to Clostridium difficile, not specified as recurrent; F31.9 Bipolar disorder, unspecified; M19.90 Unspecified osteoarthritis, unspecified site; E03.9 Hypothyroidism, unspecified; F39 Unspecified mood [affective] disorder; S09.90XA Unspecified injury of head, initial encounter; I67.9 Cerebrovascular disease, unspecified; G40.409 Other generalized epilepsy and epileptic syndromes, not intractable, without status epilepticus; F79 Unspecified intellectual disabilities; R13.10 Dysphagia, unspecified; Z86.711 Personal history of pulmonary embolism; Z95.828 Presence of other vascular implants and grafts; W18.39XA Other fall on same level, initial encounter; Y93.89 Activity, other specified; Y92.89 Other specified places as the place of occurrence of the external cause; Y99.8 Other external cause status
CPT/HCPCS: 10879

== ENCOUNTER 2019-11-18 12:10 | Inpatient (IN) | payer OTHER ==
--- NOTE | ~2019-11-18 | PLAN ---
[facility] [place] [address] REHAB UNIT PLAN OF CARE Name: JUICE BURGOS Room #: 513-P DIS IN M.R.#: [id number] Admission: 11/18/19 Attend Phys: Hector Higgins MD Discharge: 11/21/19 Date of : 67 Report #: [id number] THIS REPORT FOR: //name// CC: Hector Becker DATE OF SERVICE: 11/21/2019 PROGRESS NOTE AND OVERALL PLAN OF CARE SUBJECTIVE: The patient is seen back today in followup. Last recorded temperature 98, pulse 81, respirations 20, blood pressure 142/97. He currently has a sitter in the room. There were issues noted with some jerking movements/myoclonic jerking, which affected him in therapies. He did miss some therapies on 11/19/2019 and 11/20/2019 and was noted to refuse physical therapy. He does have this history of schizophrenia and mental retardation, which makes it a challenge as far as working with him. Neurology is involved and appreciate their assistance. From a functional perspective, he has been min assist with sit to stand again, has refused physical therapy when on 11/19/2019. He did ambulate 100 feet, mod assist with a front-wheeled walker. Lower body dressing is dependent. In speech therapy, he is on a pureed and honey thickened liquid diet. He does have severe memory and cognitive deficits. ASSESSMENT: 1. Right subacute infarct. 2. Acute on chronic encephalopathy. 3. Abnormal movements/myoclonic type jerking. Neurology assistance appreciated. Continues with current medical management. 4. Safety issues, fall prevention. He currently has a sitter in place and is in a room right across from the nurse's station. 5. Urinary tract infection. 6. Dysphagia, on thickened liquid diet. 7. Developmental delay with mental retardation. 8. History of bipolar disorder. 9. Recent urosepsis with retention. 10. History of pulmonary embolism, status post inferior vena cava filter. 11. History of pneumonia. PLAN: The overall plan of care is based on the preadmission screen, post-admission physician evaluation and information garnered from therapy assessments. 1. Estimated length of stay probably at least 10 days to 2 weeks pending his progress. We will need to see how he does. 2. Medical prognosis is reasonably good. 3. Anticipated interventions includes the interdisciplinary [place] [address] REHAB UNIT PLAN OF CARE Name: LORETTAJUICE M Room #: 513-P [facility] IN [facility]#: [id number] Admission: 11/18/19 Attend Phys: Hector Higgins MD Discharge: 11/21/19 Date of : 67 Report #: [id number] 4. Anticipated functional outcomes would be for the patient to hopefully improve as far as his gait, mobility, transfers, ADLs, and swallowing, so that he can hopefully return back to his home setting. 5. Discharge destination would be back home where he lives in a prison. 6. Expected therapy by discipline includes PT, OT and speech 1 hour per day each five days a week throughout the duration of the acute inpatient rehabilitation stay. By: [id number] Hector Higgins MD /PMT
--- NOTE | ~2019-11-18 | H ---
[facility] [place] [address] HISTORY AND PHYSICAL Name: JUICE BURGOS Room #: 513-P ADM IN M.R.#: [id number] Admission: 11/18/19 Attend Phys: Hector Higgins MD Discharge: Date of : 67 Report #: [id number] THIS REPORT FOR: //name// CC: Hector Becker DATE OF SERVICE: 11/18/2019 HISTORY AND PHYSICAL AND POST-ADMISSION PHYSICIAN EVALUATION HISTORY OF PRESENT ILLNESS: The patient has been readmitted to the acute in-hospital inpatient rehabilitation kat. The patient was previously admitted to the rehab kat with a history of premorbid advanced developmental delay/congenital neurocognitive impairment, who was admitted with acute on chronic encephalopathy with possible acute/subacute ischemic stroke in the right internal capsule. The patient was unable to undergo an MRI of the brain due to an implantable spinal cord stimulator. While on the rehab kat there was concern regarding seizure activity. EEG was noted to be markedly degraded with paroxysmal features with rare generalized slowing and sharp discharges. Neurology saw him. The patient was placed back on Dilantin. He has had medication adjustments as per Neurology. As far as his anti-seizure medications. It was thought to have a febrile illness contributed and that not all of his seizures are indeed seizures. Per discharge summary the patient had presented with abnormal movements, suspected to be seizures and these had been ruled out and he had a mild pneumonitis that resolved. He has now been readmitted to the acute inpatient rehab kat. Past medical history, social history, family history are all per the prior history and physical dictation by Dr. Hinton. Of note, he has had a history of an IVC filter placement for pulmonary embolism in the past. REVIEW OF SYSTEMS: Somewhat difficult with his significant developmental delay. PHYSICAL EXAMINATION: GENERAL: A 54-year-old male in no obvious distress. VITAL SIGNS: Last recorded temperature 97.6, pulse 80, respirations 16, blood pressure 120/68. He was quite groggy, but does respond. Has some difficulty getting him to follow basic 1 step commands. There is a definite latency to his responses. HEAD, EYES, EARS, NOSE, AND THROAT: Facies appeared symmetric. CHEST: Sounded clear to auscultation. CARDIOVASCULAR: Regular rate and rhythm. ABDOMEN: Obese, bowel sounds positive, nontender. GENITOURINARY AND RECTAL: Deferred. NEUROLOGIC: He is able to move all 4 extremities without any obvious motor deficit. Tone was possibly increased. Difficult to assess sensation. DTRs are [facility] [address] [place] [address] HISTORY AND PHYSICAL Name: JUICE BURGOS Room #: 513-P [facility] IN [facility].#: [id number] Admission: 11/18/19 Attend Phys: Hector Higgins MD Discharge: Date of : 67 Report #: [id number] probably trace to 1. He has been min assist with basic transfers. ASSESSMENT: A 54-year-old male with the following problem list: 1. Right subacute infarct. 2. Acute on chronic encephalopathy. 3. Abnormal movements, suspected to be seizures which have been noted to be ruled out. 4. Urinary tract infection. 5. Dysphagia. He is on a thickened liquid diet. 6. Developmental delay/congenital neurocognitive impairment. 7. Recent urosepsis with retention, resolved. 8. Bipolar disorder. 9. History of pulmonary embolism, status post inferior vena cava filter. 10. History of pneumonia. PLAN: The patient has been readmitted for acute in-hospital inpatient rehabilitation. From a postadmission physician evaluation perspective, there are no relevant changes since the preadmission screening. Please see the above review of prior and current medical and functional conditions and comorbidities. Please see the patient's previous and current functional status. As far as risk of complications, he does have the multiple medical comorbidities as noted above. Initial plan of care involves the interdisciplinary acute inpatient rehabilitation program. Measurable functional goals would be for the patient to achieve a functional level of these at the walker level, so he can return back to his long term. Prognosis is reasonably good. Estimated length of stay probably at least 7-10 days and potentially longer if warranted. Potential barriers would include his multiple medical comorbidities and decreased functional status. By: 1341 [id number] Hector Higgins MD /[facility]
[2019-11-18 16:45] VITALS: BP 101/72
--- NOTE | 2019-11-18 18:43 | NUR ---
PT READMITED TO ROOM 513 D/T INTERRUPTED STAY. PT HAS HX OF SEIZURE AND HAS IMPLANTABLE VAGAL NERVE STIMULATOR. PT WAS TRANSFERED BY BED. VSS ON 2L OF OXGYEN. NO ALLISON OF DISTRESS NOTED. MISHRA CATH INTACT WITH CLOUDY URINE. PT HAS HX OF MILD PNEUMONITIS. LAST BM WAS 2 DAYS AGO ON REHAB UNIT. CONTINUE TO BE ON VANCOMYCIN FOR CDIFF. STOOL FORMED SINCE LAST THURSDAY. PT IS ON HONEY THICK LIQUID. CONTINUE TO BE ON SEIZURE PRECAUTION. BED PAD. ADMISSION MEDS FAXED TO PHARMACY. NOT ABLE TO GIVE MEDS AT THIS MOMENT. WILL GIVE REPORT TO NIGHT NURSE TO CONTINUE TO MONITOR.
[2019-11-18 19:10] VITALS: BP 133/55
--- NOTE | 2019-11-19 03:45 | NUR ---
PT ASSESSMENT DONE AND VSS. PT REFUSED TO TAKE HIS EVENING AND 0000 MEDS. WAS VERY SLEEPY. TALKED TO RACHAEL DURAN ABOUT PT REFUSAL TO TAKE MEDS. WHITE SUGAR PAN TANK OPERATOR SAID WE CAN'T MAKE HIM. JUST PASS IT ON TO DAY SHIFT. FALL PRECAUTIONS IN PLACE. SLEEPING WELL. HOURLY ROUNDING. CALL LIGHT IN REACH. WILL CONTINUE TO MONITOR.
[2019-11-19 05:47] LABS: HEMATOCRIT 36.8 % (42.0-52.0); HEMOGLOBIN 11.9 gm/dL (14.0-18.0); MCH 27.7 pg (26.0-34.0); MCHC 32.3 g/dL (28.0-37.0); MCV 85.7 fL (80.0-100.0); RBC 4.29 mil/uL (4.50-6.00); RDW 15.5 % (10.5-14.5); WBC 3.3 thou/uL (4.0-11.0)
[2019-11-19 05:58] LABS: CREATININE 0.7 mg/dL (0.7-1.3); POTASSIUM 3.7 mmol/L (3.5-5.1)
[2019-11-19 07:55] VITALS: BP 120/68
--- NOTE | 2019-11-19 10:30 | NUR ---
PT IN DINING ROOM. PT ON ROOM AIR. PT REFUSING MEDICATION STATING I DON'T TAKE THEM. PLACED MEDS IN PUDDING WHOLE AND PT SPIT OUT. CRUSHED MEDS AND PT TOOK WITH THICKENED TEA. PT TOOK WELL.
--- NOTE | 2019-11-19 13:30 | NUR ---
NICOLE BRYAN CAME TO VISIT PT. SHE STATED SHE WILL BE THE ONE TO HELP TRANSPORT PT BACK TO HOME. HER NUMBER IS [phone]. LONG-TERM NUMBER IS [phone].
--- NOTE | 2019-11-19 18:46 | NUR ---
PT WHEELING AROUND IN W/C. PT REFUSING [employer]UC[employer]. PT GRABBING AT STAFF PERIODICALLY WALKING BY. PT ASKING WHAT STAFF IS DOING AND WHY.
[2019-11-19 18:50] VITALS: BP 137/88
--- NOTE | 2019-11-19 18:50 | NUR ---
PT WAS SITTING IN W/C IN VIDAL AND WAS TRYING TO SIT HIMSELF BACK UP IN W/C. PT FEEL OUT OF W/C INTO VIDAL. VS TAKEN AND WERE STABLE. PT DENIES ANY PAIN. PAGED AND GOVERNMENT CONTRACTS MANAGER.
--- NOTE | 2019-11-19 19:40 | NUR ---
ATTEMPTED TO CALL [facility], STATED NUMBER ONLY TAKES LOCAL CALLS. RECIEVED CALL BACK FROM HELLEN CANO.
[2019-11-19 19:50] VITALS: BP 129/82
[2019-11-19 20:02] VITALS: BP 129/82
[2019-11-20] VITALS (9 sets, daily range): BP systolic 108–149; BP diastolic 66–119
--- NOTE | 2019-11-20 02:11 | NUR ---
PT ASSESSMENT DONE AND VSS. PT AGAIN REFUSING MED THIS PM. CRUSHED MEDS AND PUT IN NECTAR THICK TEA LIKE DAY STAFF STATED PT LIKED. ALSO PT WAS REFUSING TO GET INTO BED LATER IN THE PM AND THEATHENING TO HIT STAFF. SECURITY CALLED FOR ASSIST TO TRANSFER PT TO BED AND HELPED GET PT TO TAKE HIS MED. TOOK 2/3'S OF LIQUID BY MICHAEL. KEPT YELLING OUT THAT HE HAD TO POOP. REFUSED TO USE BS COMMODE. ASSISTED HIM TO THE BR BY GAIT BELT AND WALKER. KYLEIGH CHUNG ALSO CAME IN TO ASSIST. PT STATED THAT HE WOULD USE THE CALL LIGHT TO CALL FOR ASSIST SO SHE LEFT. i KEPT ASKING HIM IF HE WAS DONE YET AND HE SAID NOT YET FOR 10-15 MINS TIME. I HAD JUST STEPPED OUT WHEN I HEARD HIM FALL. PT WAS POMPPED ON ONE ARM IN THE SHOWER WITH LEGS OUT IN FRONT OF HIM AT THE SIDE OF THE TOILET. HAD A GASH TO THE TOP LEFT OF HIS HEAD WITH SMALL AMOUNT OF BLOOD. THE STAFF ASSISTED HIM TO GET UP ONTO THE TOILET. BANDAGE APPLIED TO WOUND. REFORESTATION WORKER CALLED. WRECKING SUPERVISOR HELLEN CALLED. ORDERED NEURO CHECKS ONCE PER HOUR X 4 HOURS. PT ASSISTED TO RECLINER. KEPT PUTTING FOOT REST UP AND DOWN. RESTLESS. ONE STAFF MEMBER TO SIT WITH PT THE REST OF THE NIGHT FOR HIS SAFETY.
--- NOTE | 2019-11-20 06:23 | NUR ---
PT TOOK AM MEDS WHOLE IN APPLESAUCE THIS MORNING. ONE ON ONE SITTER OVERNIGHT SINCE PT FALL. PT REFUSES TO GET IN BED. WANTS TO SIT IN CHAIR WITHOUT FOOT REST UP. CHAIR ALARM ON.
--- NOTE | 2019-11-20 12:08 | NUR ---
ASSUMED CARE AT 0700 THIS MORNING. PT. UNCOOPERATIVE WITH MEDICATIONS OR CARE. HE GOT UP AND ALMOST FELL BUT STAFF WAS THERE AND LOWERED HIM TO THE GROUND. HE FELL LAST EVENING, LAST NIGHT DURING THE NIGHT ALSO. DR. LOWE NOTIFIED OF NON-COMPLIANCE WITH CARE AND MEDICATIONS. PT. PLACED ON 1:[address] OSORIOCATEGORY MANAGER ALSO NOTIFIED OF EVENTS THIS MORNING (DEVON MCKENZIECATEGORY MANAGER TODAY)
--- NOTE | 2019-11-20 18:28 | NUR ---
ASSUMED CARE AT 0700 TODAY. PT. REFUSED RESPIRATORY THERAPY TREATMENT THIS MORNING. LUNGS COURSE. PT. REFUSED MEDICATIONS TODAY. DR. LOWE NOTIFIED. HE CAME ONTO THE UNIT AND STATED HE UNDERSTOOD. PT. HAS EXHIBITED SEVERAL QUICK CLONIC JERKS TODAY BUT NOT SURE IF IT IS SEIZURES ACTIVITY. DR. LOWE DID NOT BELIEVE SO. PT. GOT UP AND TRIED TO FALL BUT STAFF CAUGHT HIM AND LOWERED HIM TO THE GROUND. HE DID NOT HIT HIS HEAD. HE DENIED ANY PAIN. HE WAS PLACED ON 1:[address] LOWE. HE HAS BEEN SITTING IN YVETTE CHAIR ON THE UNIT ON THIS 1:1 TODAY. HE DID GO TO THE BATHROOM AND ATTEMPT TO HAVE A BM, BUT WAS UNSUCCESSFUL.LORRI SALINE LOCK FLUSHED AND WAS PATENT.
[2019-11-21] VITALS (7 sets, daily range): BP systolic 116–153; BP diastolic 75–97
--- NOTE | 2019-11-21 01:17 | NUR ---
PT ALERT AND ORIENTED X 1, CONFUSED. AGITATED AT TIMES. TOOK 3 STAFF MEMBERS TO CONVINCE HIM TO TAKE HS MEDS. TOOK THEM WITH APPLESAUCE WITHOUT DIFFICULTY. MISHRA PATENT DRAINING CLEAR YELLOW URINE. PT IN RECLINER ALL SHIFT. REFUSES TO GO TO BED. SITTER WITH PT AT ALL TIMES. HEAD DRESSING C/D/I. LORRI SALINE LOCK INTACT AND PATENT. SOME OCCASIONAL JERKING NOTED BUT NO APPARENT SEIZURE ACTIVITY. CHAIR ALARM ON FOR SAFETY. PT APPEARS TO BE SLEEPING ON HOURLY ROUNDS.
--- NOTE | 2019-11-21 06:00 | NUR ---
PT SPIT OUT GABAPENTIN AND REFUSED VANCOMYCIN THIS MORNING. DID TAKE THE REST OF HIS DIRECTOR OF SECURITIES AND REAL ESTATE MEDS.
--- NOTE | 2019-11-21 09:35 | NUR ---
chart review. pt is getting up working with bedside nurse and ot. up in wheel chair. pt back on acute rehab, he from [facility]. he has 1 to 1 care givers, [place]. he can have hh if needed for therapy. has walker, and as needed transport chair. has supervision with all meals. will cont following as needed for dc needs.
--- NOTE | 2019-11-21 11:53 | NUR ---
cm notified that raghu wants pt to be transferred to or [facility] needing video monitored in order to make adjustment to his medications. cm received phone call from to [facility] ander stated " sister angelia ott called and she is kinds freaking out because he is now needing to be transferred and he is going to cont to have seizure if he is refusing to take medication"/roney. education on transfer and will check with 1st since his neuro MD is at . will cont following as needed for dc needs.
--- NOTE | 2019-11-21 17:46 | NUR ---
ASSUMED CARE AT 0700 TODAY. VSS ON RA. REPORTS HE SLEPT WELL LAST NIGHT. OFFERED SUPPORTIVE CARE. PT KNOWS THIS CLIENT SERVICES ACCOUNT MANAGER. TOOK ALL HIS MEDS ONE AT THE TIME WITH YOGURT WITHOUT DIFFICULTY. PT REFUSES AT TIME PT ABLE TO PARTICIPATE WITH OT/PT/ST ENCOURAGED TOO. HE WAS UP AND WALKING WITH PHYSICAL THERAPIST.NEUROLOGIST CAME TO SEE PT RESUMED LAMICTAL. MEDS GIVEN ORDERED. AND DOCTOR ORDERED FOR EEG. PT DIDN'T COOPERATE WITH EEG. DR. WEISS AWARES. [facility] BROUGHT MAGNET BUT DOCTOR SUGGEST NOT TO USE IT AT THIS MOMENT. NOTIFIED SISTER AND WILL SEND MAGNET IN PT'S BACKPACK WHEN TRANSFERING. FAMILY IS NOT ABLE TO SIGN MED CARE PAPER AND GAVE PERMISSION TO MIGUEL, GEOLOGICAL DRAFTER TO SIGN WITH THIS CLIENT SERVICES ACCOUNT MANAGER. PLAN THIS EVENING IS TO TRANSFER PT TO FOR BETTER MONITOR HIS SEIZURE ACTIVITY. NOTIFIED EDENILSON/HIS SISTER/DPOA AND SHE AGREES. PT. HAS EXHIBITED SEVERAL QUICK CLONIC JERKS TODAY BUT NOT SURE IF IT IS SEIZURES ACTIVITY. HE HAS BEEN SITTING IN YVETTE CHAIR ON THE UNIT ON THIS 1:1 TODAY AND UP WITH WC TO DINNING ROOM AT MEALS TIME. HAD GOOD APPETITE. CONT BM, ASSISTED TO BSC HAD GOOD BM TODAY. PT CONTINUE TO BE ON ISOLATION FOR CDIFF. HAD FORMED STOOL SINCE LAST WEEK. CONTINUE TO BE ON PO VANCOMYCIN FOR 1MORE WEEK. PT IS ON HONEY THICK AND ON ASPIRATION PRECAUTION. LORRI SALINE LOCK FLUSHED AND WAS PATENT. PT ALERT AND AWAKE. CLOTHES CLEAN. PT AWARES OF THE TRANSFERRING. CM CALLED AND FILLED OUT PAPERS FOR DISCHARGING. STILL WAITING FOR TO CALL WHEN BED AVAILABLE. PT ATE DINNER AND BACK TO RECLINER NOW. C/O COUGHING. COUGH MEDICATION GIVEN NEEDS. WILL CONTINUE TO MONITOR.
== END 2019-11-21 19:27 | disposition short-term general hospital (02) | DRG 64 ==
PROVIDERS: Nurse Practitioner Family; ADMIT Physical Medicine & Rehabilitation
DX: I63.9 Cerebral infarction, unspecified (principal); J18.9 Pneumonia, unspecified organism; N39.0 Urinary tract infection, site not specified; G93.49 Other encephalopathy; R13.10 Dysphagia, unspecified; F31.9 Bipolar disorder, unspecified; R33.9 Retention of urine, unspecified; R31.9 Hematuria, unspecified; E03.9 Hypothyroidism, unspecified; M19.90 Unspecified osteoarthritis, unspecified site; G40.409 Other generalized epilepsy and epileptic syndromes, not intractable, without status epilepticus; F20.9 Schizophrenia, unspecified; F01.50 Vascular dementia, unspecified severity, without behavioral disturbance, psychotic disturbance, mood disturbance, and anxiety; F79 Unspecified intellectual disabilities; R29.6 Repeated falls; Z86.711 Personal history of pulmonary embolism; Z79.01 Long term (current) use of anticoagulants; Z87.01 Personal history of pneumonia (recurrent)
CPT/HCPCS: 10112

== ENCOUNTER 2019-12-11 11:36 | Emergency (ER) | payer OTHER ==
[~2019-12-11] VITALS: Ht 177.8 cm; Wt 90.7 kg
[2019-12-11 12:33] VITALS: BP 112/46
== END 2019-12-11 13:40 | disposition home or self-care (01) ==
LOC: ER 11:36
DX: S01.111A Laceration without foreign body of right eyelid and periocular area, initial encounter (principal); R56.9 Unspecified convulsions; E03.9 Hypothyroidism, unspecified; F31.9 Bipolar disorder, unspecified; Z86.711 Personal history of pulmonary embolism; W19.XXXA Unspecified fall, initial encounter; Y93.89 Activity, other specified; Y92.89 Other specified places as the place of occurrence of the external cause; Y99.8 Other external cause status

== ENCOUNTER 2020-01-16 15:29 | Emergency (ER) | payer OTHER ==
[~2020-01-16] VITALS: Ht 180.3 cm; Wt 96.2 kg
[2020-01-16] MEDS ORDERED: BRIVIACT100 MG PO (16:22)
[2020-01-16] MEDS ORDERED: CLOBAZAM10 MG PO (16:24)
[2020-01-16] MEDS ORDERED: LAMICTAL200 MG PO (16:25)
[2020-01-16] MEDS ORDERED: VIMPAT200 MG PO (16:27)
[2020-01-16] MEDS ORDERED: CHLORPROMAZINE100 MG PO (16:28)
[2020-01-16] MEDS ORDERED: DIASTAT2.5 MG RECTAL (16:30)
[2020-01-16 17:03] VITALS: BP 113/65
[2020-01-16 17:08] LABS: ABSOLUTE NEUTROPHILS 5.2 thou/uL (1.4-8.2); BASOPHILS 0.4 % (0.0-2.0); EOSINOPHILS 2.6 % (0.0-3.0); HEMATOCRIT 40.3 % (42.0-52.0); HEMOGLOBIN 12.9 gm/dL (14.0-18.0); LYMPHOCYTES 19.8 % (24.0-44.0); MCH 26.9 pg (26.0-34.0); MCV 84.1 fL (80.0-100.0); MONOCYTES 11.4 % (1.0-8.0); PLATELET COUNT 285 thou/uL (150-400); POLYS 65.8 % (36.0-66.0); RBC 4.79 mil/uL (4.50-6.00); RDW 16.1 % (10.5-14.5); WBC 7.9 thou/uL (4.0-11.0)
[2020-01-16 17:12] LABS: CALCIUM 9.8 mg/dL (8.5-10.1); CREATININE 0.9 mg/dL (0.7-1.3); POTASSIUM 3.9 mmol/L (3.5-5.1)
[2020-01-16] MEDS ORDERED: ANUSOL-HC30 GM TOP (19:17)
[2020-01-16 19:45] LABS: URINE BLOOD NEGATIVE (Negative); URINE CLARITY SL CLOUDY; URINE COLOR YELLOW; URINE GLUCOSE-RANDOM* NEGATIVE (Negative); URINE KETONES NEGATIVE (Negative); URINE PROTEIN (DIPSTICK) NEGATIVE (Negative); URINE SPECIFIC GRAVITY 1.025 (1.005-1.035); URINE UROBILINOGEN 0.2 E.U./dl (0.2-1.0)
[2020-01-16 19:47] LABS: URINE LEUKOCYTES-REFLEX 1+ (Negative); URINE NITRITE-REFLEX POSITIVE (Negative)
[2020-01-16 19:48] LABS: ICTOTEST (BILI CONFIRMATORY) Negative (Negative); URINE BILIRUBIN NEGATIVE (Negative)
[2020-01-16] MEDS ORDERED: KEFLEX500 M1 PO ×2 (19:55→19:58)
[2020-01-16 20:02] LABS: BACTERIA-REFLEX >30 Many /HPF (None Seen); CASTS None Seen /LPF (None Seen); CRYSTALS None Seen /LPF (None Seen); SQUAMOUS None Seen /LPF (0-3); URINE RBC None Seen /HPF (0-2)
== END 2020-01-16 20:25 | disposition home or self-care (01) ==
LOC: ER 15:29
PROVIDERS: Nurse Practitioner Family
DX: K64.5 Perianal venous thrombosis (principal); N39.0 Urinary tract infection, site not specified; E03.9 Hypothyroidism, unspecified; M19.90 Unspecified osteoarthritis, unspecified site; F31.9 Bipolar disorder, unspecified; Z86.718 Personal history of other venous thrombosis and embolism

== ENCOUNTER 2020-05-11 09:38 | Emergency (ER) | payer OTHER ==
[~2020-05-11] VITALS: Ht 177.8 cm; Wt 97.5 kg
[~2020-05-11 09:38] MED LIST changes: +ANUSOL-HC30 GM TOP; +BRIVIACT100 MG PO; +CLOBAZAM10 MG PO; +KEFLEX500 M1 PO
[2020-05-11] MEDS ORDERED: NAPROSYN500 MG PO (11:12)
[2020-05-11 11:42] VITALS: BP 121/71
== END 2020-05-11 11:43 | disposition home or self-care (01) ==
LOC: ER 09:38
DX: S93.601A Unspecified sprain of right foot, initial encounter (principal); E03.9 Hypothyroidism, unspecified; Z87.891 Personal history of nicotine dependence; Z79.899 Other long term (current) drug therapy; W19.XXXA Unspecified fall, initial encounter; Y93.89 Activity, other specified; Y92.89 Other specified places as the place of occurrence of the external cause; Y99.8 Other external cause status

== ENCOUNTER 2020-05-28 01:46 | Inpatient (IN) | payer OTHER ==
[~2020-05-28] VITALS: Ht 170.2 cm; Wt 112.1 kg
[~2020-05-28 01:46] MED LIST changes: +NAPROSYN500 MG PO
[2020-05-28 01:47] VITALS: BP 97/49
[2020-05-28 02:42] LABS: BASOPHILS 0.7 % (0.0-2.0); EOSINOPHILS 0.1 % (0.0-3.0); HEMATOCRIT 42.5 % (42.0-52.0); HEMOGLOBIN 13.8 gm/dL (14.0-18.0); MCHC 32.6 g/dL (28.0-37.0); MCV 85.9 fL (80.0-100.0); MONOCYTES 5.2 % (1.0-8.0); PLATELET COUNT 261 thou/uL (150-400); RBC 4.95 mil/uL (4.50-6.00); RDW 17.6 % (10.5-14.5); WBC 3.6 thou/uL (4.0-11.0)
[2020-05-28 02:48] LABS: ANION GAP 9 mmol/L (7-16); BUN 30 mg/dL (7-18); CALCIUM 9.1 mg/dL (8.5-10.1); CHLORIDE 103 mmol/L (98-107); CO2 25 mmol/L (21-32); CREATININE 1.4 mg/dL (0.7-1.3); GLUCOSE 127 mg/dL (74-106); POTASSIUM 3.7 mmol/L (3.5-5.1); SODIUM 137 mmol/L (136-145)
[2020-05-28 02:58] LABS: ALBUMIN 3.9 g/dL (3.4-5.0); LIPASE 74 U/L (73-393); SGOT 23 U/L (15-37); SGPT 22 U/L (30-65); TOTAL BILIRUBIN 0.7 mg/dL (0.2-1.0); TOTAL PROTEIN 8.1 g/dL (6.4-8.2); TROPONIN-I <0.06 ng/mL (<0.06)
[2020-05-28] MEDS ORDERED: VENTOLIN HFA 1818 GM INH (04:17)
[2020-05-28] MEDS ORDERED: HYDROCORT-PRAMO30 G1 TOP (04:24)
[2020-05-28] MEDS ORDERED: VIMPAT200 MG PO (04:31)
[2020-05-28] MEDS ORDERED: [UNRECOGNIZED DRUG - OTHER] PO (04:32)
[2020-05-28 05:40] LABS: BE(vivo) -1.4 mmol/L (-2 to +3); HCO3 24.7 mmol/L (22.0-26.0); PCO2 47.3 mmHg (35.0-45.0); PO2 80.3 mmHg (80.0-100.0); pH 7.336 (7.360-7.450); sO2 95.1 % (92.0-98.0)
[2020-05-28 06:37] VITALS: BP 111/73
--- NOTE | 2020-05-28 08:22 | EKG ---
[facility] [place] [address] ELECTROCARDIOGRAM REPORT Name: JUICE BURGOS Room #: 363-P ADM IN M.R.#: [id number] Admission: 05/28/20 Attend Phys: Jerod Mckeon Discharge: Date of : 67 Report #: [id number] THIS REPORT FOR: cc: Conrado Becker MD, Kirk D. MD Lundgren, Craig H. MD [facility] ~ THIS REPORT FOR: //name// [facility] ED Test Date: 2020-05-28 Test Time: 02:41:09 Pat Name: JUICE BURGOS Department: Room: [facility] Gender: M Paint Stripper: : 1965 Requested By: Bob Cantu Order Number: [id number] MD: Liam Mccoy Measurements Intervals [place] Rate: 129 P: 10 IA: 173 QRS: 246 QRSD: 91 T: 40 QT: 290 QTc: 425 Interpretive Statements Sinus tachycardia Left anterior fascicular block Abnormal R-wave progression, late transition Compared to ECG 11/16/2019 12:02:28 No significant change was found Electronically Signed On 05-28-2020 8:21:44 CDT by Liam Mccoy [email or web address] <ELECTRONICALLY SIGNED> By: Liam Mccoy MD, [facility] 05/28/20 0821 0 0 Liam Mccoy MD, [facility] /EPI
[2020-05-28 08:33] VITALS: BP 104/55
[2020-05-28 12:16] VITALS: BP 99/56
[2020-05-28 17:02] VITALS: BP 121/69
[2020-05-29 04:09] VITALS: BP 135/81
[2020-05-29 04:40] LABS: URINE BILIRUBIN NEGATIVE (Negative); URINE BLOOD 1+ (Negative); URINE CLARITY SL CLOUDY; URINE COLOR YELLOW; URINE GLUCOSE-RANDOM* NEGATIVE (Negative); URINE KETONES 1+ (Negative); URINE PROTEIN (DIPSTICK) TRACE (Negative); URINE SPECIFIC GRAVITY 1.025 (1.005-1.035); URINE UROBILINOGEN 0.2 E.U./dl (0.2-1.0)
[2020-05-29 04:41] LABS: URINE LEUKOCYTES-REFLEX 1+ (Negative); URINE NITRITE-REFLEX POSITIVE (Negative)
[2020-05-29 04:49] LABS: CRYSTALS None Seen /LPF (None Seen); HYALINE CASTS 0-3 Few /LPF (None Seen); MUCUS 0-3 Light strn/LPF (None Seen); SQUAMOUS 0-3 Few /LPF (0-3); URINE RBC 3-10 Few /HPF (0-2)
[2020-05-29 19:46] VITALS: BP 135/70
[2020-05-29 19:57] LABS: HEMATOCRIT 34.7 % (42.0-52.0); MCH 28.3 pg (26.0-34.0); MCV 85.7 fL (80.0-100.0); RBC 4.05 mil/uL (4.50-6.00); RDW 17.7 % (10.5-14.5); WBC 11.5 thou/uL (4.0-11.0)
[2020-05-29 19:58] LABS: HEMOGLOBIN 11.5 gm/dL (14.0-18.0)
[2020-05-29 20:06] LABS: CALCIUM 8.7 mg/dL (8.5-10.1); CREATININE 0.8 mg/dL (0.7-1.3); POTASSIUM 3.4 mmol/L (3.5-5.1)
[2020-05-30] VITALS (7 sets, daily range): BP systolic 131–188; BP diastolic 72–89
[2020-05-30 06:02] LABS: ABSOLUTE NEUTROPHILS 8.4 thou/uL (1.4-8.2); BASOPHILS 0.4 % (0.0-2.0); EOSINOPHILS 1.2 % (0.0-3.0); HEMATOCRIT 34.3 % (42.0-52.0); HEMOGLOBIN 11.1 gm/dL (14.0-18.0); LYMPHOCYTES 15.9 % (24.0-44.0); MCH 27.8 pg (26.0-34.0); MCHC 32.5 g/dL (28.0-37.0); MCV 85.7 fL (80.0-100.0); PLATELET COUNT 245 thou/uL (150-400); POLYS 75.5 % (36.0-66.0); RDW 17.6 % (10.5-14.5); WBC 11.1 thou/uL (4.0-11.0)
[2020-05-30] MEDS ORDERED: AUGMENTIN 875-1 EACH PO (10:28)
[2020-05-30 23:17] LABS: HCO3 25.3 mmol/L (22.0-26.0); PCO2 39.1 mmHg (35.0-45.0); PO2 134.1 mmHg (80.0-100.0); pH 7.428 (7.360-7.450); sO2 98.7 % (92.0-98.0)
[2020-05-31] VITALS (28 sets, daily range): BP systolic 101–174; BP diastolic 63–114
[2020-05-31 06:49] LABS: HEMATOCRIT 35.2 % (42.0-52.0); HEMOGLOBIN 11.6 gm/dL (14.0-18.0); MCH 28.2 pg (26.0-34.0); MCHC 32.9 g/dL (28.0-37.0); MCV 85.7 fL (80.0-100.0); RBC 4.1 mil/uL (4.50-6.00); RDW 16.9 % (10.5-14.5); WBC 10.1 thou/uL (4.0-11.0)
[2020-05-31 07:04] LABS: CALCIUM 8.5 mg/dL (8.5-10.1); CREATININE 0.8 mg/dL (0.7-1.3); POTASSIUM 3.3 mmol/L (3.5-5.1)
--- NOTE | 2020-05-31 17:37 | EEG ---
[facility] [place] [address] ELECTROENCEPHALOGRAM Name: JUICE BURGOS Room #: 244-P [facility] IN M.R.#: [id number] Admission: 05/28/20 Attend Phys: Kei Bob MD Discharge: Date of : 67 Report #: [id number] THIS REPORT FOR: //name// CC: Kei Becker DATE OF SERVICE: 05/31/2020 This patient is being evaluated for seizures. EEG was done by placing the electrodes by standard 10-20 system of electrode placement. Both referential and sequential montages were used for recording. Background activity in this patient's EEG is about 7 Hz and 30 microvolt. Photic stimulation is unremarkable. No active epileptiform activity was noticed. IMPRESSION: This is an abnormal EEG because it is disorganized and poorly formed. That is a nonspecific abnormality, which can occur with encephalopathy, effect of psychotropic medication, dementia, etc. No active epileptiform activity was noticed during this record in spite of the patient's history of seizure. <ELECTRONICALLY SIGNED> By: Farhan Townsend MD 05/31/20 1737 [id number] [id number] Farhan Townsend MD /nt
--- NOTE | 2020-06-01 11:40 | HC ---
[facility] [place] [address] CONSULTATION Name: JUICE BURGOS Room #: [facility] IN M.R.#: [id number] Admission: 05/28/20 Attend Phys: Kei Bob MD Discharge: 05/31/20 Date of : 67 Report #: [id number] THIS REPORT FOR: cc: Conrado Becker MD, Kirk D. MD Khosla, Parveen K. MD ~ CC: Kei Becker DATE OF SERVICE: 05/31/2020 HISTORY OF PRESENT ILLNESS: This is a 54-year-old male patient who was seen today because he had a seizure last night. This patient got Ativan, so he is unable to provide any history. 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 It happened because the patient apparently had a very high fever at that time. Since then he is in a mcc, but needs 24-hour supervision. He has intractable seizure and he sees an epileptologist in [facility]. He is on multiple anticonvulsants. He was having nausea, vomiting and unable to keep the medications down and subsequently had another seizure, which appeared to be a breakthrough grand mal seizure. REVIEW OF SYSTEMS: Positive for intractable seizure. He has a history of DVT and pulmonary embolus. He has nausea, vomiting. He apparently has a vagus nerve stimulator. I do not know when was that readjusted. He has a history of bipolar disorder and mood disorder, PE, hypothyroidism. This was a relevant 14-point review of system I can get both from the record and talking to the patient. PAST MEDICAL HISTORY: Positive for seizure, which are pretty intractable. FAMILY HISTORY: Unremarkable. SOCIAL HISTORY: He has a durable power of county attorney. PHYSICAL EXAMINATION: His examination is pretty limited. He is sleepy. Then, he wakes up, he does not follow any commands. I cannot tell about the neuromuscular examination, which I attempted. Similarly, I cannot look at the fundus or do the cranial nerve examination because he did not cooperate. His temperature is normal at 98.6, pulse rate is 90. LABORATORY DATA: Indicated white count of 10.1. His sodium is normal. He did have a CT scan of the head this morning and that was reviewed, it showed no acute process. IMPRESSION: The seizure, he has, was most likely a breakthrough seizure because [facility] [address] [place] [address] CONSULTATION Name: JUICE BURGOS Room #: 244-P [facility] IN M.R.#: [id number] Admission: 05/28/20 Attend Phys: Kei Bob MD Discharge: 05/31/20 Date of : 67 Report #: [id number] the patient could not keep his medications down. He is being given the same medications IV. I will check an EEG done in this patient. Presently, that is all I will do. I do not have any capability to readjust his vagus nerve stimulator, but they are going to bring a magnet and a shock can be given by them if he feels like having a seizure, but I am not sure he can tell that. Dr. Miguel will follow up this patient with you from tomorrow onward. Thank you very much for this referral. <ELECTRONICALLY SIGNED> By: Farhan Townsend MD 06/01/20 1140 1218 1502 Farhan Townsend MD /nt
== END 2020-05-31 23:00 | DRG 871 ==
LOC: ER 01:46 → 3W 04:10 → EROBS 04:10 → 3W 07:49 → 2N 05-29 15:38 → ICU 05-31 05:59
PROVIDERS: Emergency Medicine; Hospitalist; Nurse Practitioner Family; ADMIT Hospitalist; ATTEND Hospitalist
DX: A41.9 Sepsis, unspecified organism (principal); J69.0 Pneumonitis due to inhalation of food and vomit; J96.01 Acute respiratory failure with hypoxia; G93.49 Other encephalopathy; Z20.828 Contact with and (suspected) exposure to other viral communicable diseases; G40.409 Other generalized epilepsy and epileptic syndromes, not intractable, without status epilepticus; F31.9 Bipolar disorder, unspecified; M19.90 Unspecified osteoarthritis, unspecified site; E03.9 Hypothyroidism, unspecified; R13.10 Dysphagia, unspecified; E66.9 Obesity, unspecified; N30.90 Cystitis, unspecified without hematuria; B96.89 Other specified bacterial agents as the cause of diseases classified elsewhere; R33.9 Retention of urine, unspecified; Z86.711 Personal history of pulmonary embolism; Z95.828 Presence of other vascular implants and grafts; Z86.73 Personal history of transient ischemic attack (TIA), and cerebral infarction without residual deficits; Z68.38 Body mass index [BMI] 38.0-38.9, adult; Z79.899 Other long term (current) drug therapy
CPT/HCPCS: 10081; 10879